=== PATIENT | female | born 1960 | race Caucasian/White ===

== ENCOUNTER 2017-12-06 21:52 | Inpatient (IN) ==
[2017-12-06] MEDS ORDERED: ONDANSETRON 4 MG/2 ML VIAL IV STA (23:33)
[2017-12-06] MEDS ORDERED: SODIUM CHLORIDE 0.9% 500 ML IV STA (23:33)
[2017-12-06] MEDS ORDERED: methylPREDNISolone SOD SUC 125 MG/2 ML VIAL IV STA (23:33)
[2017-12-06] MEDS ORDERED: ALBUTEROL 2.5 MG/3 ML NEB RESP TX SCH (23:45)
[2017-12-07] MEDS ORDERED: ONDANSETRON 4 MG/2 ML VIAL ONE (00:16)
[2017-12-07] MEDS ORDERED: methylPREDNISolone SOD SUC 125 MG/2 ML VIAL ONE (00:16)
[2017-12-07 00:23] LABS: INR 0.9; PT Patient Result 9.8 SECS
[2017-12-07] MEDS ORDERED: HYDROmorphone 2 MG/1 ML VIAL ONE (00:23)
[2017-12-07 00:34] LABS: Apearance,Urine CLEAR (Clear); Bilirubin,Urine Negative (Negative); Blood, Urine Small mg/dL (Negative); Glucose,Urine (UA) Negative (Negative); Ketones,Urine Negative (Negative); Nitrite,Urine Negative (Negative); Protein,Urine Negative; RBC,Urine 1 /HPF (0-4); Urine Color Yellow (Yellow); Urine Specific Gravity 1.009 (1.001-1.035); Urine Urobilinogen < 2.0 EU/DL (0.2-1.0); WBC,Urine <1 /HPF (0-6)
[2017-12-07 00:39] LABS: Basophils # 0.1 10*3/uL (0.0-0.2); Basophils % 0.4 % (0.0-0.8); Eosinophils # 0.1 10*3/uL (0.0-0.87); Eosinophils % 0.3 % (0.00-10.9); Hematocrit 40.9 VOL% (35.7-47.0); Hemoglobin 12.8 GM/DL (12.0-16.0); Immature Granulocytes % 2.2 %; Immature Granulocytes Absolute 0.37 #; Lymphocytes # 2.3 10*3/uL (1.4-4.0); Lymphocytes % 13.3 % (21.3-54.2); Mean Corpuscular HGB Conc 31.3 GM/DL (32-36); Mean Corpuscular Hemoglobin 28 PG (27-34); Mean Corpuscular Volume 89.7 FL (87-102); Mean Platelet Volume 9.3 FL (9.6-12.0); Neutrophils # 13.2 10*3/uL (1.4-7.4); Neutrophils % 77.8 % (38.7-73.9); Platelet Count 500 T/CUMM (130-400); Red Blood Count 4.56 MC/CUMM (3.8-5.5); Red Cell Distribution Width 14.6 % (9.3-17.3); White Blood Count 16.9 T/CUMM (4-12)
[2017-12-07] MEDS ORDERED: HYDROmorphone 2 MG/1 ML VIAL IV STA (00:41)
[2017-12-07 00:42] LABS: Barbiturates Screen,Urine Negative (Negative); Benzodiazepines Screen,Urine Positive (Negative); Cannabinoid Screen,Urine Negative (Negative); Opiate Screen,Urine Positive (Negative); Phencyclidine Screen,Urine Negative (Negative)
[2017-12-07 00:45] LABS: Alanine Aminotransferase 23 U/L (13-56); Albumin 3.3 G/DL (3.4-5.0); Alkaline Phosphatase 105 U/L (45-117); Aspartate Amino Transferase 10 U/L (0-37); Bilirubin,Total < 0.39 MG/DL (0.2-1.0); Blood Urea Nitrogen 9 MG/DL (7-18); Calcium 9.3 MG/DL (8.5-10.1); Glucose 157 MG/DL (74-106); Potassium 4.2 MMOL/L (3.5-5.1); Sodium 136 MMOL/L (136-145); Total Protein 6.5 G/DL (6.4-8.3); Troponin I Only < 0.015 NG/ML (0.00-0.045)
[2017-12-07] MEDS ORDERED: LEVOFLOXACIN INJ 0 ML IV ONE (01:14)
[2017-12-07] MEDS: LEVOFLOXACIN INJ 750 MG in PREMIX 1 EACH IV SCH (01:19)
[2017-12-07] MEDS ORDERED: VANCOMYCIN INJ 750 MG in SODIUM CHLORIDE 0.45% 250 ML IV SCH (02:00)
[2017-12-07] MEDS ORDERED: ALBUTEROL/IPRATROPIUM 3 ML NEB RESP TX STA (02:10)
[2017-12-07] MEDS ORDERED: ALBUTEROL 2.5 MG/3 ML NEB RESP TX PRN ×3 (02:28→17:01)
[2017-12-07] MEDS ORDERED: DEXTROSE 50% 25 GM/50 ML VIAL IV PRN (02:28)
[2017-12-07] MEDS ORDERED: GLUCAGON 1 MG VIAL IM PRN (02:28)
[2017-12-07] MEDS ORDERED: HYDROmorphone 2 MG/1 ML VIAL IV ONE (03:00)
[2017-12-07 04:52] LABS: Basophils % 0.2 % (0.0-0.8); Hematocrit 40.9 VOL% (35.7-47.0); Immature Granulocytes % 1.2 %; Immature Granulocytes Absolute 0.15 #; Lymphocytes # 1.2 10*3/uL (1.4-4.0); Lymphocytes % 9.6 % (21.3-54.2); Mean Corpuscular HGB Conc 31.8 GM/DL (32-36); Mean Corpuscular Hemoglobin 28 PG (27-34); Mean Corpuscular Volume 88.1 FL (87-102); Mean Platelet Volume 9.3 FL (9.6-12.0); Monocytes # 0.2 10*3/uL (0.11-0.8); Monocytes % 1.9 % (1.7-12.7); Neutrophils # 10.7 10*3/uL (1.4-7.4); Neutrophils % 87.1 % (38.7-73.9); Platelet Count 493 T/CUMM (130-400); Red Blood Count 4.64 MC/CUMM (3.8-5.5); Red Cell Distribution Width 14.5 % (9.3-17.3); White Blood Count 12.2 T/CUMM (4-12)
[2017-12-07 05:16] LABS: Lactic Acid 3.3 MMOL/L (0.4-2.0)
[2017-12-07] MEDS ORDERED: HYDROmorphone 2 MG/1 ML VIAL IM PRN (06:17)
[2017-12-07 06:39] LABS: Alanine Aminotransferase 20 U/L (13-56); Albumin 3.2 G/DL (3.4-5.0); Alkaline Phosphatase 105 U/L (45-117); Aspartate Amino Transferase 9 U/L (0-37); Bilirubin,Total < 0.39 MG/DL (0.2-1.0); Blood Urea Nitrogen 9 MG/DL (7-18); Glucose 207 MG/DL (74-106); Osmolality,Calculated 272.2 MOS/KG (273-304); Sodium 134 MMOL/L (136-145); Total Protein 6.7 G/DL (6.4-8.3)
[2017-12-07] MEDS ORDERED: HYDROmorphone 2 MG/1 ML VIAL IV PRN (07:00)
[2017-12-07] MEDS: HYDROmorphone 2 MG/1 ML VIAL IV PRN ×5 (07:41→18:40)
[2017-12-07] MEDS: PANTOPRAZOLE 40 MG TABLET PO SCH (09:49)
[2017-12-07] MEDS ORDERED: MIDAZOLAM 2 MG/2 ML VIAL ONE (11:15)
[2017-12-07] MEDS ORDERED: LIDOCAINE 4% TOP SOLN 50 ML BOTTLE RESP TX ONE (11:20)
[2017-12-07] MEDS ORDERED: LIDOCAINE 2% VISCOUS 100 ML BOTTLE SWISH/SPIT ONE (11:20)
[2017-12-07] MEDS ORDERED: MIDAZOLAM 2 MG/2 ML VIAL IV ONE (11:55)
[2017-12-07] MEDS ORDERED: LIDOCAINE 1% 5 ML VIAL MISC INJ ONE (11:58)
[2017-12-07] MEDS ORDERED: EPINEPHrine 1 MG/ML VIAL ET ONE (12:00)
[2017-12-07] MEDS ORDERED: ALUM/MAG/SIMETH/LIDO VISC 1:1 30 ML BOTTLE PO ONE ×3 (13:00→19:48)
[2017-12-07] MEDS ORDERED: RACEPINEPHRINE 0.5 ML NEB RESP TX PRN (13:34)
[2017-12-07] MEDS: RACEPINEPHRINE 0.5 ML NEB RESP TX SCH ×2 (16:14→19:15)
[2017-12-07] MEDS ORDERED: RACEPINEPHRINE 0.5 ML NEB RESP TX SCH (19:00)
[2017-12-07] MEDS: tiZANidine 4 MG TABLET PO SCH (20:53)
[2017-12-07] MEDS: buPROPion 100 MG TABLET PO SCH (20:53)
[2017-12-07] MEDS: oxyCODONE/ACETAMINOPHEN 5-325 MG TABLET PO SCH (20:54)
[2017-12-07] MEDS: ATORVASTATIN 10 MG TABLET PO SCH (20:54)
[2017-12-07] MEDS ORDERED: Adderall 20 Mg Tablet PO SCH (21:00)
[2017-12-07] MEDS: FLUTICASONE 50 MCG NASAL SPRAY 16 GM BOTTLE BOTH NARES SCH (22:08)
[2017-12-08] MEDS: LEVOFLOXACIN INJ 750 MG in PREMIX 1 EACH IV SCH (00:33)
[2017-12-08] MEDS: ALUMINUM/MAGNES/SIMETH MAX STR 30 ML UDCUP PO PRN ×2 (01:45→20:15)
[2017-12-08] MEDS: HYDROmorphone 2 MG/1 ML VIAL IV PRN ×4 (04:43→19:55)
[2017-12-08 07:02] LABS: Basophils % 0.3 % (0.0-0.8); Eosinophils # 0.1 10*3/uL (0.0-0.87); Eosinophils % 0.7 % (0.00-10.9); Hematocrit 39.5 VOL% (35.7-47.0); Hemoglobin 12.3 GM/DL (12.0-16.0); Immature Granulocytes % 0.9 %; Immature Granulocytes Absolute 0.09 #; Lymphocytes # 3.9 10*3/uL (1.4-4.0); Lymphocytes % 37.6 % (21.3-54.2); Mean Corpuscular HGB Conc 31.1 GM/DL (32-36); Mean Corpuscular Hemoglobin 27 PG (27-34); Mean Corpuscular Volume 87.4 FL (87-102); Mean Platelet Volume 9.1 FL (9.6-12.0); Monocytes # 0.8 10*3/uL (0.11-0.8); Neutrophils # 5.4 10*3/uL (1.4-7.4); Neutrophils % 52.5 % (38.7-73.9); Platelet Count 449 T/CUMM (130-400); Red Blood Count 4.52 MC/CUMM (3.8-5.5); Red Cell Distribution Width 14.5 % (9.3-17.3); White Blood Count 10.2 T/CUMM (4-12)
[2017-12-08 07:28] LABS: Calcium 9.8 MG/DL (8.5-10.1); Osmolality,Calculated 275.8 MOS/KG (273-304); Potassium 3.8 MMOL/L (3.5-5.1)
[2017-12-08] MEDS: RACEPINEPHRINE 0.5 ML NEB RESP TX SCH ×4 (07:32→21:05)
[2017-12-08] MEDS: buPROPion 100 MG TABLET PO SCH ×2 (09:03→22:36)
[2017-12-08] MEDS: oxyCODONE/ACETAMINOPHEN 5-325 MG TABLET PO SCH ×3 (09:03→22:34)
[2017-12-08] MEDS: tiZANidine 4 MG TABLET PO SCH ×3 (09:03→22:36)
[2017-12-08] MEDS: PANTOPRAZOLE 40 MG TABLET PO SCH (09:10)
[2017-12-08] MEDS: METOPROLOL SUCCINATE XL 50 MG TABLET PO SCH (09:10)
[2017-12-08] MEDS: FLUTICASONE 50 MCG NASAL SPRAY 16 GM BOTTLE BOTH NARES SCH ×2 (09:11→22:38)
[2017-12-08] MEDS: ATORVASTATIN 10 MG TABLET PO SCH (22:37)
[2017-12-09] MEDS: HYDROmorphone 2 MG/1 ML VIAL IV PRN ×5 (03:47→23:50)
[2017-12-09 06:02] LABS: Basophils # 0.1 10*3/uL (0.0-0.2); Basophils % 0.6 % (0.0-0.8); Eosinophils # 0.1 10*3/uL (0.0-0.87); Hematocrit 39.2 VOL% (35.7-47.0); Hemoglobin 12.3 GM/DL (12.0-16.0); Immature Granulocytes % 0.8 %; Immature Granulocytes Absolute 0.07 #; Lymphocytes # 3.1 10*3/uL (1.4-4.0); Mean Corpuscular HGB Conc 31.4 GM/DL (32-36); Mean Corpuscular Hemoglobin 28 PG (27-34); Mean Corpuscular Volume 87.7 FL (87-102); Mean Platelet Volume 9.2 FL (9.6-12.0); Monocytes # 0.8 10*3/uL (0.11-0.8); Monocytes % 9.2 % (1.7-12.7); Neutrophils # 4.5 10*3/uL (1.4-7.4); Neutrophils % 52.4 % (38.7-73.9); Platelet Count 422 T/CUMM (130-400); Red Blood Count 4.47 MC/CUMM (3.8-5.5); Red Cell Distribution Width 14.3 % (9.3-17.3); White Blood Count 8.6 T/CUMM (4-12)
[2017-12-09 06:29] LABS: Calcium 9.5 MG/DL (8.5-10.1); Osmolality,Calculated 280.5 MOS/KG (273-304)
[2017-12-09] MEDS: RACEPINEPHRINE 0.5 ML NEB RESP TX SCH ×4 (07:12→20:42)
[2017-12-09] MEDS: LEVOFLOXACIN INJ 750 MG in PREMIX 1 EACH IV SCH (08:10)
[2017-12-09] MEDS: oxyCODONE/ACETAMINOPHEN 5-325 MG TABLET PO SCH ×3 (10:33→21:00)
[2017-12-09] MEDS: METOPROLOL SUCCINATE XL 50 MG TABLET PO SCH (10:34)
[2017-12-09] MEDS: PANTOPRAZOLE 40 MG TABLET PO SCH (10:34)
[2017-12-09] MEDS: buPROPion 100 MG TABLET PO SCH ×2 (10:34→21:01)
[2017-12-09] MEDS: tiZANidine 4 MG TABLET PO SCH ×3 (10:34→21:02)
[2017-12-09] MEDS: FLUTICASONE 50 MCG NASAL SPRAY 16 GM BOTTLE BOTH NARES SCH ×2 (10:35→21:10)
[2017-12-09] MEDS ORDERED: HEPARIN LOCK FLUSH 500 UNIT/5 ML SYRINGE IV SCH (19:00)
[2017-12-09] MEDS: ALUMINUM/MAGNES/SIMETH MAX STR 30 ML UDCUP PO PRN (19:40)
[2017-12-09] MEDS: ATORVASTATIN 10 MG TABLET PO SCH (21:01)
[2017-12-09] MEDS: HEPARIN LOCK FLUSH 500 UNIT/5 ML SYRINGE IV SCH (21:10)
[2017-12-10] MEDS: HYDROmorphone 2 MG/1 ML VIAL IV PRN ×6 (02:28→20:23)
[2017-12-10] MEDS: RACEPINEPHRINE 0.5 ML NEB RESP TX SCH ×4 (07:39→20:27)
[2017-12-10] MEDS: ALBUTEROL/IPRATROPIUM 3 ML NEB RESP TX PRN (07:39)
[2017-12-10] MEDS: LEVOFLOXACIN INJ 750 MG in PREMIX 1 EACH IV SCH (09:11)
[2017-12-10] MEDS: FLUTICASONE 50 MCG NASAL SPRAY 16 GM BOTTLE BOTH NARES SCH ×2 (09:15→21:32)
[2017-12-10] MEDS: PANTOPRAZOLE 40 MG TABLET PO SCH (09:20)
[2017-12-10] MEDS: tiZANidine 4 MG TABLET PO SCH ×3 (09:20→21:26)
[2017-12-10] MEDS: oxyCODONE/ACETAMINOPHEN 5-325 MG TABLET PO SCH ×3 (09:20→21:25)
[2017-12-10] MEDS: buPROPion 100 MG TABLET PO SCH ×2 (09:20→21:26)
[2017-12-10] MEDS: HEPARIN LOCK FLUSH 500 UNIT/5 ML SYRINGE IV SCH ×2 (09:26→21:25)
[2017-12-10] MEDS: METOPROLOL SUCCINATE XL 50 MG TABLET PO SCH (12:42)
[2017-12-10] MEDS ORDERED: HEPARIN LOCK FLUSH 500 UNIT/5 ML SYRINGE IV ONE (14:17)
[2017-12-10] MEDS: DEXAMETHASONE INJ 10 MG in SODIUM CHLORIDE 0.9% 50 ML IV SCH (17:03)
[2017-12-10] MEDS: ATORVASTATIN 10 MG TABLET PO SCH (21:26)
[2017-12-11] MEDS: HYDROmorphone 2 MG/1 ML VIAL IV PRN ×6 (03:31→20:23)
[2017-12-11 05:17] LABS: Basophils % 0.2 % (0.0-0.8); Hematocrit 33.5 VOL% (35.7-47.0); Hemoglobin 10.9 GM/DL (12.0-16.0); Immature Granulocytes % 0.8 %; Immature Granulocytes Absolute 0.04 #; Lymphocytes # 1.2 10*3/uL (1.4-4.0); Lymphocytes % 22.2 % (21.3-54.2); Mean Corpuscular HGB Conc 32.5 GM/DL (32-36); Mean Corpuscular Hemoglobin 28 PG (27-34); Mean Corpuscular Volume 86.6 FL (87-102); Mean Platelet Volume 9.4 FL (9.6-12.0); Monocytes # 0.4 10*3/uL (0.11-0.8); Monocytes % 7.3 % (1.7-12.7); Neutrophils # 3.7 10*3/uL (1.4-7.4); Neutrophils % 69.5 % (38.7-73.9); Platelet Count 382 T/CUMM (130-400); Red Blood Count 3.87 MC/CUMM (3.8-5.5); Red Cell Distribution Width 13.8 % (9.3-17.3); White Blood Count 5.3 T/CUMM (4-12)
[2017-12-11 05:54] LABS: Calcium 9.1 MG/DL (8.5-10.1); Osmolality,Calculated 282.7 MOS/KG (273-304); Potassium 3.9 MMOL/L (3.5-5.1)
[2017-12-11] MEDS: RACEPINEPHRINE 0.5 ML NEB RESP TX SCH ×4 (07:27→21:01)
[2017-12-11] MEDS: DEXAMETHASONE INJ 10 MG in SODIUM CHLORIDE 0.9% 50 ML IV SCH (09:08)
[2017-12-11] MEDS: FLUTICASONE 50 MCG NASAL SPRAY 16 GM BOTTLE BOTH NARES SCH ×2 (09:08→21:57)
[2017-12-11] MEDS: tiZANidine 4 MG TABLET PO SCH ×3 (09:09→21:46)
[2017-12-11] MEDS: buPROPion 100 MG TABLET PO SCH ×2 (09:09→21:57)
[2017-12-11] MEDS: oxyCODONE/ACETAMINOPHEN 5-325 MG TABLET PO SCH ×3 (09:09→21:46)
[2017-12-11] MEDS: METOPROLOL SUCCINATE XL 50 MG TABLET PO SCH (09:10)
[2017-12-11] MEDS: HEPARIN LOCK FLUSH 500 UNIT/5 ML SYRINGE IV SCH ×2 (09:10→21:49)
[2017-12-11] MEDS: PANTOPRAZOLE 40 MG TABLET PO SCH (09:10)
[2017-12-11] MEDS: LEVOFLOXACIN INJ 750 MG in PREMIX 1 EACH IV SCH (09:50)
[2017-12-11] MEDS: INSULIN REGULAR 100 UNIT/ML SUBCUT SCH ×2 (17:20→21:46)
[2017-12-11] MEDS: ATORVASTATIN 10 MG TABLET PO SCH (21:46)
[2017-12-12] MEDS: HYDROmorphone 2 MG/1 ML VIAL IV PRN ×8 (00:09→20:13)
[2017-12-12] MEDS: RACEPINEPHRINE 0.5 ML NEB RESP TX SCH ×4 (07:01→19:53)
[2017-12-12] MEDS: oxyCODONE/ACETAMINOPHEN 5-325 MG TABLET PO SCH (08:34)
[2017-12-12] MEDS: FLUTICASONE 50 MCG NASAL SPRAY 16 GM BOTTLE BOTH NARES SCH ×2 (08:34→21:44)
[2017-12-12] MEDS: INSULIN REGULAR 100 UNIT/ML SUBCUT SCH ×4 (08:35→21:38)
[2017-12-12] MEDS: buPROPion 100 MG TABLET PO SCH ×2 (08:35→21:39)
[2017-12-12] MEDS: PANTOPRAZOLE 40 MG TABLET PO SCH (08:35)
[2017-12-12] MEDS: tiZANidine 4 MG TABLET PO SCH ×3 (08:35→21:39)
[2017-12-12] MEDS: METOPROLOL SUCCINATE XL 50 MG TABLET PO SCH (08:36)
[2017-12-12] MEDS: DEXAMETHASONE INJ 10 MG in SODIUM CHLORIDE 0.9% 50 ML IV SCH (08:38)
[2017-12-12] MEDS: LEVOFLOXACIN INJ 750 MG in PREMIX 1 EACH IV SCH (09:19)
[2017-12-12] MEDS: HEPARIN LOCK FLUSH 500 UNIT/5 ML SYRINGE IV SCH ×2 (09:20→21:39)
[2017-12-12] MEDS: ATORVASTATIN 10 MG TABLET PO SCH (21:39)
[2017-12-12] MEDS: oxyCODONE/ACETAMINOPHEN 5-325 MG TABLET PO PRN (21:43)
[2017-12-13] MEDS: HYDROmorphone 2 MG/1 ML VIAL IV PRN ×8 (00:06→20:45)
[2017-12-13 06:34] LABS: Basophils % 0.3 % (0.0-0.8); Eosinophils # 0.1 10*3/uL (0.0-0.87); Eosinophils % 0.9 % (0.00-10.9); Hematocrit 35.8 VOL% (35.7-47.0); Hemoglobin 11.1 GM/DL (12.0-16.0); Immature Granulocytes % 0.6 %; Immature Granulocytes Absolute 0.05 #; Lymphocytes # 2.3 10*3/uL (1.4-4.0); Lymphocytes % 25.7 % (21.3-54.2); Mean Corpuscular Hemoglobin 28 PG (27-34); Mean Corpuscular Volume 88.8 FL (87-102); Monocytes # 0.9 10*3/uL (0.11-0.8); Monocytes % 10.3 % (1.7-12.7); Neutrophils # 5.5 10*3/uL (1.4-7.4); Neutrophils % 62.2 % (38.7-73.9); Platelet Count 354 T/CUMM (130-400); Red Blood Count 4.03 MC/CUMM (3.8-5.5); Red Cell Distribution Width 13.9 % (9.3-17.3); White Blood Count 8.8 T/CUMM (4-12)
[2017-12-13] MEDS: RACEPINEPHRINE 0.5 ML NEB RESP TX SCH ×5 (07:00→20:03)
[2017-12-13] MEDS ORDERED: HYDROmorphone 2 MG/1 ML VIAL IV ONE (07:30)
[2017-12-13] MEDS ORDERED: LIDOCAINE 2% 20 ML VIAL RESP TX ONE (07:30)
[2017-12-13] MEDS ORDERED: LIDOCAINE 2% VISCOUS 100 ML BOTTLE SWISH/SPIT ONE (07:30)
[2017-12-13] MEDS ORDERED: diphenhydrAMINE 50 MG/1 ML VIAL IM ONE (07:30)
[2017-12-13] MEDS ORDERED: LIDOCAINE 1% 20 ML VIAL MISC INJ ONE (07:30)
[2017-12-13] MEDS: PANTOPRAZOLE 40 MG TABLET PO SCH (08:02)
[2017-12-13] MEDS: buPROPion 100 MG TABLET PO SCH ×2 (08:03→20:54)
[2017-12-13 08:13] LABS: PT Patient Result 10.1 SECS; Partial Thromboplastin Time 25.9 SECS (0-40)
[2017-12-13] MEDS: METOPROLOL SUCCINATE XL 50 MG TABLET PO SCH (08:13)
[2017-12-13] MEDS: HEPARIN LOCK FLUSH 500 UNIT/5 ML SYRINGE IV SCH ×2 (08:13→20:49)
[2017-12-13] MEDS: FLUTICASONE 50 MCG NASAL SPRAY 16 GM BOTTLE BOTH NARES SCH ×2 (08:13→20:57)
[2017-12-13] MEDS: INSULIN REGULAR 100 UNIT/ML SUBCUT SCH ×4 (08:13→23:28)
[2017-12-13] MEDS: tiZANidine 4 MG TABLET PO SCH ×3 (08:13→20:53)
[2017-12-13] MEDS ORDERED: MIDAZOLAM 2 MG/2 ML VIAL ONE (08:34)
[2017-12-13 08:43] LABS: Alanine Aminotransferase 15 U/L (13-56); Albumin 3.1 G/DL (3.4-5.0); Alkaline Phosphatase 88 U/L (45-117); Aspartate Amino Transferase 5 U/L (0-37); Bilirubin,Total < 0.39 MG/DL (0.2-1.0); Blood Urea Nitrogen 10 MG/DL (7-18); Calcium 9.4 MG/DL (8.5-10.1); Glucose 138 MG/DL (74-106); Osmolality,Calculated 275.7 MOS/KG (273-304); Potassium 3.8 MMOL/L (3.5-5.1); Sodium 138 MMOL/L (136-145); Total Protein 6.3 G/DL (6.4-8.3)
[2017-12-13] MEDS ORDERED: MIDAZOLAM 2 MG/2 ML VIAL IV ONE (09:30)
[2017-12-13] MEDS ORDERED: EPINEPHrine 1 MG/ML VIAL ET ONE (09:37)
[2017-12-13] MEDS: DEXAMETHASONE INJ 10 MG in SODIUM CHLORIDE 0.9% 50 ML IV SCH (10:27)
[2017-12-13] MEDS ORDERED: EPINEPHrine 1 MG/ML VIAL ONE (10:30)
[2017-12-13] MEDS: oxyCODONE/ACETAMINOPHEN 5-325 MG TABLET PO PRN ×2 (12:00→23:19)
[2017-12-13] MEDS: LEVOFLOXACIN INJ 750 MG in PREMIX 1 EACH IV SCH (16:56)
[2017-12-13] MEDS: ATORVASTATIN 10 MG TABLET PO SCH (20:53)
[2017-12-14] MEDS: HYDROmorphone 2 MG/1 ML VIAL IV PRN ×3 (00:34→05:35)
[2017-12-14 06:34] LABS: Basophils % 0.1 % (0.0-0.8); Eosinophils % 0.6 % (0.00-10.9); Hematocrit 37.7 VOL% (35.7-47.0); Hemoglobin 11.8 GM/DL (12.0-16.0); Immature Granulocytes % 0.3 %; Immature Granulocytes Absolute 0.02 #; Lymphocytes # 1.9 10*3/uL (1.4-4.0); Lymphocytes % 28.6 % (21.3-54.2); Mean Corpuscular HGB Conc 31.3 GM/DL (32-36); Mean Corpuscular Hemoglobin 28 PG (27-34); Mean Corpuscular Volume 87.9 FL (87-102); Mean Platelet Volume 9.4 FL (9.6-12.0); Monocytes # 0.8 10*3/uL (0.11-0.8); Monocytes % 11.1 % (1.7-12.7); Neutrophils % 59.3 % (38.7-73.9); Platelet Count 418 T/CUMM (130-400); Red Blood Count 4.29 MC/CUMM (3.8-5.5); Red Cell Distribution Width 13.9 % (9.3-17.3); White Blood Count 6.8 T/CUMM (4-12)
[2017-12-14] MEDS: oxyCODONE/ACETAMINOPHEN 5-325 MG TABLET PO PRN (06:55)
[2017-12-14 07:07] LABS: Albumin 3.2 G/DL (3.4-5.0); Bilirubin,Total 0.9 MG/DL (0.2-1.0); Calcium 9.6 MG/DL (8.5-10.1); Osmolality,Calculated 271.8 MOS/KG (273-304); Potassium 4.1 MMOL/L (3.5-5.1); Total Protein 6.6 G/DL (6.4-8.3)
[2017-12-14] MEDS: RACEPINEPHRINE 0.5 ML NEB RESP TX SCH ×4 (07:08→20:40)
[2017-12-14] MEDS ORDERED: NALOXONE 0.4 MG/ML VIAL IV PRN (07:55)
[2017-12-14] MEDS: METOPROLOL SUCCINATE XL 50 MG TABLET PO SCH ×2 (09:33→10:00)
[2017-12-14] MEDS: PANTOPRAZOLE 40 MG TABLET PO SCH (09:33)
[2017-12-14] MEDS: INSULIN REGULAR 100 UNIT/ML SUBCUT SCH ×4 (09:34→22:28)
[2017-12-14] MEDS: HYDROmorphone PCA 30 MG/30 ML SYRINGE IV SCH (09:34)
[2017-12-14] MEDS: HEPARIN LOCK FLUSH 500 UNIT/5 ML SYRINGE IV SCH ×2 (09:35→22:13)
[2017-12-14] MEDS: FLUTICASONE 50 MCG NASAL SPRAY 16 GM BOTTLE BOTH NARES SCH ×2 (09:36→23:01)
[2017-12-14] MEDS: MORPHINE ER 15 MG TABLET PO SCH ×3 (09:42→22:09)
[2017-12-14] MEDS: CARISOPRODOL 350 MG TABLET PO SCH ×3 (09:43→22:10)
[2017-12-14] MEDS: DEXAMETHASONE INJ 10 MG in SODIUM CHLORIDE 0.9% 50 ML IV SCH (09:43)
[2017-12-14] MEDS: buPROPion 100 MG TABLET PO SCH ×2 (10:00→22:11)
[2017-12-14] MEDS: ATORVASTATIN 10 MG TABLET PO SCH (22:11)
[2017-12-15] MEDS: ALUMINUM/MAGNES/SIMETH MAX STR 30 ML UDCUP PO PRN (01:06)
[2017-12-15] MEDS: HEPARIN LOCK FLUSH 500 UNIT/5 ML SYRINGE IV PRN (04:44)
[2017-12-15] MEDS: CARISOPRODOL 350 MG TABLET PO SCH ×3 (05:58→22:03)
[2017-12-15] MEDS: MORPHINE ER 15 MG TABLET PO SCH ×3 (05:58→22:03)
[2017-12-15 06:21] LABS: Basophils % 0.1 % (0.0-0.8); Eosinophils # 0.1 10*3/uL (0.0-0.87); Eosinophils % 0.7 % (0.00-10.9); Hematocrit 33.9 VOL% (35.7-47.0); Hemoglobin 11.3 GM/DL (12.0-16.0); Immature Granulocytes % 0.4 %; Immature Granulocytes Absolute 0.03 #; Lymphocytes % 36.3 % (21.3-54.2); Mean Corpuscular HGB Conc 33.3 GM/DL (32-36); Mean Corpuscular Hemoglobin 28 PG (27-34); Mean Corpuscular Volume 85.2 FL (87-102); Mean Platelet Volume 9.8 FL (9.6-12.0); Monocytes # 0.7 10*3/uL (0.11-0.8); Monocytes % 8.8 % (1.7-12.7); Neutrophils # 4.5 10*3/uL (1.4-7.4); Neutrophils % 53.7 % (38.7-73.9); Platelet Count 384 T/CUMM (130-400); Red Blood Count 3.98 MC/CUMM (3.8-5.5); Red Cell Distribution Width 13.5 % (9.3-17.3); White Blood Count 8.3 T/CUMM (4-12)
[2017-12-15 06:31] LABS: Alanine Aminotransferase 14 U/L (13-56); Albumin 3.1 G/DL (3.4-5.0); Alkaline Phosphatase 81 U/L (45-117); Aspartate Amino Transferase 7 U/L (0-37); Bilirubin,Total < 0.39 MG/DL (0.2-1.0); Blood Urea Nitrogen 13 MG/DL (7-18); Calcium 9.2 MG/DL (8.5-10.1); Glucose 107 MG/DL (74-106); Potassium 3.7 MMOL/L (3.5-5.1); Sodium 136 MMOL/L (136-145); Total Protein 6.1 G/DL (6.4-8.3)
[2017-12-15] MEDS: RACEPINEPHRINE 0.5 ML NEB RESP TX SCH (07:10)
[2017-12-15] MEDS ORDERED: DEXAMETHASONE INJ 10 MG in SODIUM CHLORIDE 0.9% 50 ML IV ONE (08:00)
[2017-12-15] MEDS ORDERED: ONDANSETRON IV ONE (08:05)
[2017-12-15] MEDS ORDERED: SODIUM CHLORIDE 0.9% IV ONE (08:05)
[2017-12-15] MEDS ORDERED: CARBOplatin 300 MG in SODIUM CHLORIDE 0.9% 250 ML IV ONE (08:07)
[2017-12-15] MEDS: INSULIN REGULAR 100 UNIT/ML SUBCUT SCH ×4 (08:58→20:18)
[2017-12-15] MEDS: PANTOPRAZOLE 40 MG TABLET PO SCH (09:19)
[2017-12-15] MEDS: METOPROLOL SUCCINATE XL 50 MG TABLET PO SCH (09:19)
[2017-12-15] MEDS: HEPARIN LOCK FLUSH 500 UNIT/5 ML SYRINGE IV SCH ×2 (09:19→20:17)
[2017-12-15] MEDS: buPROPion 100 MG TABLET PO SCH ×2 (09:19→20:17)
[2017-12-15] MEDS: FLUTICASONE 50 MCG NASAL SPRAY 16 GM BOTTLE BOTH NARES SCH ×2 (09:20→20:19)
[2017-12-15] MEDS: ONDANSETRON 4 MG/2 ML VIAL IV PRN (13:15)
[2017-12-15] MEDS: DEXAMETHASONE INJ 10 MG in SODIUM CHLORIDE 0.9% 50 ML IV SCH (15:07)
[2017-12-15] MEDS: HYDROmorphone PCA 30 MG/30 ML SYRINGE IV SCH (20:09)
[2017-12-15] MEDS: ATORVASTATIN 10 MG TABLET PO SCH (20:17)
[2017-12-16] MEDS: ONDANSETRON 4 MG/2 ML VIAL IV PRN ×2 (01:34→11:46)
[2017-12-16] MEDS: CARISOPRODOL 350 MG TABLET PO SCH ×3 (06:14→21:36)
[2017-12-16] MEDS: MORPHINE ER 15 MG TABLET PO SCH ×3 (06:14→21:36)
[2017-12-16 07:47] LABS: Basophils % 0.2 % (0.0-0.8); Eosinophils # 0.1 10*3/uL (0.0-0.87); Eosinophils % 0.6 % (0.00-10.9); Hematocrit 36.4 VOL% (35.7-47.0); Hemoglobin 11.5 GM/DL (12.0-16.0); Immature Granulocytes % 0.6 %; Immature Granulocytes Absolute 0.05 #; Lymphocytes # 3.1 10*3/uL (1.4-4.0); Lymphocytes % 38.6 % (21.3-54.2); Mean Corpuscular HGB Conc 31.6 GM/DL (32-36); Mean Corpuscular Hemoglobin 28 PG (27-34); Mean Corpuscular Volume 87.7 FL (87-102); Mean Platelet Volume 9.4 FL (9.6-12.0); Monocytes # 0.7 10*3/uL (0.11-0.8); Monocytes % 8.1 % (1.7-12.7); Neutrophils # 4.2 10*3/uL (1.4-7.4); Neutrophils % 51.9 % (38.7-73.9); Platelet Count 404 T/CUMM (130-400); Red Blood Count 4.15 MC/CUMM (3.8-5.5); Red Cell Distribution Width 13.8 % (9.3-17.3); White Blood Count 8.1 T/CUMM (4-12)
[2017-12-16 08:14] LABS: Alanine Aminotransferase 14 U/L (13-56); Alkaline Phosphatase 84 U/L (45-117); Aspartate Amino Transferase 4 U/L (0-37); Bilirubin,Total < 0.39 MG/DL (0.2-1.0); Blood Urea Nitrogen 13 MG/DL (7-18); Calcium 9.4 MG/DL (8.5-10.1); Glucose 115 MG/DL (74-106); Osmolality,Calculated 273.8 MOS/KG (273-304); Potassium 4.7 MMOL/L (3.5-5.1); Sodium 137 MMOL/L (136-145); Total Protein 6.1 G/DL (6.4-8.3)
[2017-12-16] MEDS: INSULIN REGULAR 100 UNIT/ML SUBCUT SCH ×4 (08:55→21:37)
[2017-12-16] MEDS: PANTOPRAZOLE 40 MG TABLET PO SCH (09:54)
[2017-12-16] MEDS: buPROPion 100 MG TABLET PO SCH ×2 (09:54→21:36)
[2017-12-16] MEDS: HEPARIN LOCK FLUSH 500 UNIT/5 ML SYRINGE IV SCH ×2 (09:55→21:37)
[2017-12-16] MEDS: FLUTICASONE 50 MCG NASAL SPRAY 16 GM BOTTLE BOTH NARES SCH ×2 (10:01→21:38)
[2017-12-16] MEDS: METOPROLOL SUCCINATE XL 50 MG TABLET PO SCH (10:02)
[2017-12-16] MEDS: DEXAMETHASONE INJ 10 MG in SODIUM CHLORIDE 0.9% 50 ML IV SCH (12:14)
[2017-12-16] MEDS: ATORVASTATIN 10 MG TABLET PO SCH (21:36)
[2017-12-16] MEDS: HYDROmorphone PCA 30 MG/30 ML SYRINGE IV SCH (23:26)
[2017-12-17 05:29] LABS: Basophils % 0.2 % (0.0-0.8); Eosinophils # 0.1 10*3/uL (0.0-0.87); Eosinophils % 0.8 % (0.00-10.9); Hemoglobin 11.9 GM/DL (12.0-16.0); Immature Granulocytes % 1.3 %; Immature Granulocytes Absolute 0.08 #; Lymphocytes # 2.1 10*3/uL (1.4-4.0); Lymphocytes % 33.8 % (21.3-54.2); Mean Corpuscular HGB Conc 31.3 GM/DL (32-36); Mean Corpuscular Hemoglobin 28 PG (27-34); Mean Platelet Volume 9.6 FL (9.6-12.0); Monocytes # 0.7 10*3/uL (0.11-0.8); Monocytes % 11.1 % (1.7-12.7); Neutrophils # 3.3 10*3/uL (1.4-7.4); Neutrophils % 52.8 % (38.7-73.9); Platelet Count 388 T/CUMM (130-400); Red Blood Count 4.32 MC/CUMM (3.8-5.5); Red Cell Distribution Width 13.8 % (9.3-17.3); White Blood Count 6.3 T/CUMM (4-12)
[2017-12-17] MEDS: CARISOPRODOL 350 MG TABLET PO SCH ×3 (06:24→22:02)
[2017-12-17] MEDS: MORPHINE ER 15 MG TABLET PO SCH ×3 (06:24→22:02)
[2017-12-17 06:26] LABS: Alanine Aminotransferase 13 U/L (13-56); Alkaline Phosphatase 87 U/L (45-117); Aspartate Amino Transferase < 3 U/L (0-37); Blood Urea Nitrogen 11 MG/DL (7-18); Calcium 9.5 MG/DL (8.5-10.1); Glucose 87 MG/DL (74-106); Potassium 4.1 MMOL/L (3.5-5.1); Sodium 136 MMOL/L (136-145); Total Protein 6.3 G/DL (6.4-8.3)
[2017-12-17] MEDS: buPROPion 100 MG TABLET PO SCH ×2 (09:01→22:02)
[2017-12-17] MEDS: PANTOPRAZOLE 40 MG TABLET PO SCH (09:01)
[2017-12-17] MEDS: DIAZEPAM 2 MG TABLET PO SCH ×2 (09:01→22:03)
[2017-12-17] MEDS: HEPARIN LOCK FLUSH 500 UNIT/5 ML SYRINGE IV SCH ×2 (09:02→22:03)
[2017-12-17] MEDS: INSULIN REGULAR 100 UNIT/ML SUBCUT SCH ×4 (09:02→20:47)
[2017-12-17] MEDS: HYDROmorphone PCA 30 MG/30 ML SYRINGE IV SCH (09:02)
[2017-12-17] MEDS: METOPROLOL SUCCINATE XL 50 MG TABLET PO SCH (09:03)
[2017-12-17] MEDS: FLUTICASONE 50 MCG NASAL SPRAY 16 GM BOTTLE BOTH NARES SCH ×2 (09:03→22:04)
[2017-12-17] MEDS: DEXAMETHASONE INJ 10 MG in SODIUM CHLORIDE 0.9% 50 ML IV SCH (09:06)
[2017-12-17] MEDS: ALBUTEROL/IPRATROPIUM 3 ML NEB RESP TX PRN ×2 (12:07→19:15)
[2017-12-17] MEDS: ATORVASTATIN 10 MG TABLET PO SCH (22:02)
[2017-12-18 03:14] LABS: Basophils % 0.2 % (0.0-0.8); Eosinophils % 0.5 % (0.00-10.9); Hematocrit 35.3 VOL% (35.7-47.0); Hemoglobin 11.4 GM/DL (12.0-16.0); Immature Granulocytes % 0.8 %; Immature Granulocytes Absolute 0.05 #; Lymphocytes # 1.9 10*3/uL (1.4-4.0); Lymphocytes % 31.3 % (21.3-54.2); Mean Corpuscular HGB Conc 32.3 GM/DL (32-36); Mean Corpuscular Hemoglobin 28 PG (27-34); Mean Corpuscular Volume 86.5 FL (87-102); Mean Platelet Volume 9.7 FL (9.6-12.0); Monocytes # 0.8 10*3/uL (0.11-0.8); Neutrophils # 3.2 10*3/uL (1.4-7.4); Neutrophils % 54.2 % (38.7-73.9); Platelet Count 354 T/CUMM (130-400); Red Blood Count 4.08 MC/CUMM (3.8-5.5); Red Cell Distribution Width 13.5 % (9.3-17.3)
[2017-12-18 03:41] LABS: Albumin 2.9 G/DL (3.4-5.0); Bilirubin,Total 0.5 MG/DL (0.2-1.0); Calcium 8.9 MG/DL (8.5-10.1); Osmolality,Calculated 264.4 MOS/KG (273-304); Total Protein 6.1 G/DL (6.4-8.3)
[2017-12-18 03:42] LABS: Potassium 3.9 MMOL/L (3.5-5.1)
[2017-12-18] MEDS ORDERED: HYDROmorphone 2 MG/1 ML VIAL IV PRN (05:03)
[2017-12-18] MEDS: CARISOPRODOL 350 MG TABLET PO SCH ×3 (06:31→22:15)
[2017-12-18] MEDS: MORPHINE ER 15 MG TABLET PO SCH ×4 (06:31→22:15)
[2017-12-18] MEDS: ALBUTEROL/IPRATROPIUM 3 ML NEB RESP TX PRN ×3 (08:08→19:30)
[2017-12-18] MEDS: HYDROmorphone PCA 30 MG/30 ML SYRINGE IV SCH (08:46)
[2017-12-18] MEDS: buPROPion 100 MG TABLET PO SCH ×2 (08:51→20:36)
[2017-12-18] MEDS: INSULIN REGULAR 100 UNIT/ML SUBCUT SCH ×4 (08:51→20:43)
[2017-12-18] MEDS: PANTOPRAZOLE 40 MG TABLET PO SCH (08:51)
[2017-12-18] MEDS: DIAZEPAM 2 MG TABLET PO SCH ×2 (08:51→20:37)
[2017-12-18] MEDS: METOPROLOL SUCCINATE XL 50 MG TABLET PO SCH (08:51)
[2017-12-18] MEDS: HYDROmorphone 2 MG/1 ML VIAL IV SCH ×3 (08:52→20:38)
[2017-12-18] MEDS: DEXAMETHASONE INJ 10 MG in SODIUM CHLORIDE 0.9% 50 ML IV SCH (08:55)
[2017-12-18] MEDS: HEPARIN LOCK FLUSH 500 UNIT/5 ML SYRINGE IV SCH ×2 (08:56→20:43)
[2017-12-18] MEDS: FLUTICASONE 50 MCG NASAL SPRAY 16 GM BOTTLE BOTH NARES SCH ×2 (08:58→20:47)
[2017-12-18] MEDS: ONDANSETRON 4 MG/2 ML VIAL IV PRN ×2 (12:25→16:36)
[2017-12-18] MEDS: ATORVASTATIN 10 MG TABLET PO SCH (20:37)
[2017-12-19] MEDS: HYDROmorphone 2 MG/1 ML VIAL IV SCH ×4 (02:45→19:40)
[2017-12-19 06:20] LABS: Basophils % 0.2 % (0.0-0.8); Eosinophils % 0.4 % (0.00-10.9); Hematocrit 33.8 VOL% (35.7-47.0); Immature Granulocytes % 0.9 %; Immature Granulocytes Absolute 0.05 #; Lymphocytes # 1.4 10*3/uL (1.4-4.0); Lymphocytes % 24.4 % (21.3-54.2); Mean Corpuscular HGB Conc 32.5 GM/DL (32-36); Mean Corpuscular Hemoglobin 28 PG (27-34); Mean Corpuscular Volume 84.7 FL (87-102); Mean Platelet Volume 9.8 FL (9.6-12.0); Monocytes # 0.5 10*3/uL (0.11-0.8); Monocytes % 8.3 % (1.7-12.7); Neutrophils # 3.7 10*3/uL (1.4-7.4); Neutrophils % 65.8 % (38.7-73.9); Platelet Count 366 T/CUMM (130-400); Red Blood Count 3.99 MC/CUMM (3.8-5.5); Red Cell Distribution Width 13.6 % (9.3-17.3); White Blood Count 5.5 T/CUMM (4-12)
[2017-12-19 06:45] LABS: Albumin 2.7 G/DL (3.4-5.0); Bilirubin,Total 0.4 MG/DL (0.2-1.0); Calcium 9.1 MG/DL (8.5-10.1); Osmolality,Calculated 264.4 MOS/KG (273-304); Total Protein 5.8 G/DL (6.4-8.3)
[2017-12-19] MEDS: CARISOPRODOL 350 MG TABLET PO SCH ×3 (06:51→21:53)
[2017-12-19] MEDS: MORPHINE ER 15 MG TABLET PO SCH ×3 (06:52→21:53)
[2017-12-19] MEDS: ALBUTEROL/IPRATROPIUM 3 ML NEB RESP TX PRN ×3 (08:08→20:53)
[2017-12-19] MEDS: PANTOPRAZOLE 40 MG TABLET PO SCH (09:02)
[2017-12-19] MEDS: DIAZEPAM 2 MG TABLET PO SCH ×2 (09:02→21:53)
[2017-12-19] MEDS: buPROPion 100 MG TABLET PO SCH ×2 (09:02→21:54)
[2017-12-19] MEDS: DEXAMETHASONE INJ 10 MG in SODIUM CHLORIDE 0.9% 50 ML IV SCH (09:04)
[2017-12-19] MEDS: INSULIN REGULAR 100 UNIT/ML SUBCUT SCH ×4 (09:09→21:56)
[2017-12-19] MEDS: METOPROLOL SUCCINATE XL 50 MG TABLET PO SCH (09:10)
[2017-12-19] MEDS: HEPARIN LOCK FLUSH 500 UNIT/5 ML SYRINGE IV SCH ×2 (09:10→21:55)
[2017-12-19] MEDS: FLUTICASONE 50 MCG NASAL SPRAY 16 GM BOTTLE BOTH NARES SCH ×2 (09:10→21:55)
[2017-12-19] MEDS: ONDANSETRON 4 MG/2 ML VIAL IV PRN (14:13)
[2017-12-19] MEDS: guaiFENesin 200 MG/10 ML UDCUP PO PRN ×2 (14:15→23:46)
[2017-12-19] MEDS: ATORVASTATIN 10 MG TABLET PO SCH (21:54)
[2017-12-20] MEDS: HYDROmorphone 2 MG/1 ML VIAL IV SCH ×4 (02:43→20:20)
[2017-12-20 06:07] LABS: Basophils % 0.2 % (0.0-0.8); Eosinophils % 0.2 % (0.00-10.9); Hematocrit 32.1 VOL% (35.7-47.0); Hemoglobin 10.5 GM/DL (12.0-16.0); Immature Granulocytes % 1.1 %; Immature Granulocytes Absolute 0.05 #; Lymphocytes # 1.3 10*3/uL (1.4-4.0); Mean Corpuscular HGB Conc 32.7 GM/DL (32-36); Mean Corpuscular Hemoglobin 28 PG (27-34); Mean Corpuscular Volume 86.3 FL (87-102); Mean Platelet Volume 9.6 FL (9.6-12.0); Monocytes # 0.4 10*3/uL (0.11-0.8); Monocytes % 8.9 % (1.7-12.7); Neutrophils # 2.8 10*3/uL (1.4-7.4); Neutrophils % 61.6 % (38.7-73.9); Platelet Count 345 T/CUMM (130-400); Red Blood Count 3.72 MC/CUMM (3.8-5.5); Red Cell Distribution Width 13.3 % (9.3-17.3); White Blood Count 4.5 T/CUMM (4-12)
[2017-12-20 06:31] LABS: Calcium 8.7 MG/DL (8.5-10.1); Osmolality,Calculated 264.4 MOS/KG (273-304); Potassium 3.9 MMOL/L (3.5-5.1)
[2017-12-20] MEDS: CARISOPRODOL 350 MG TABLET PO SCH ×3 (06:49→22:47)
[2017-12-20] MEDS: MORPHINE ER 15 MG TABLET PO SCH ×3 (06:49→22:47)
[2017-12-20] MEDS: INSULIN REGULAR 100 UNIT/ML SUBCUT SCH ×4 (08:04→21:27)
[2017-12-20] MEDS: ALBUTEROL/IPRATROPIUM 3 ML NEB RESP TX PRN ×3 (08:09→19:27)
[2017-12-20] MEDS: DEXAMETHASONE INJ 10 MG in SODIUM CHLORIDE 0.9% 50 ML IV SCH (08:54)
[2017-12-20] MEDS: HEPARIN LOCK FLUSH 500 UNIT/5 ML SYRINGE IV SCH ×2 (08:56→21:25)
[2017-12-20] MEDS: PANTOPRAZOLE 40 MG TABLET PO SCH (08:56)
[2017-12-20] MEDS: buPROPion 100 MG TABLET PO SCH ×2 (08:56→21:25)
[2017-12-20] MEDS: DIAZEPAM 2 MG TABLET PO SCH ×2 (08:56→21:25)
[2017-12-20] MEDS: METOPROLOL SUCCINATE XL 50 MG TABLET PO SCH (08:56)
[2017-12-20] MEDS: FLUTICASONE 50 MCG NASAL SPRAY 16 GM BOTTLE BOTH NARES SCH ×2 (08:57→21:26)
[2017-12-20] MEDS: guaiFENesin 200 MG/10 ML UDCUP PO PRN (14:38)
[2017-12-20] MEDS: ATORVASTATIN 10 MG TABLET PO SCH (21:25)
[2017-12-21] MEDS: HYDROmorphone 2 MG/1 ML VIAL IV SCH ×4 (02:45→19:43)
[2017-12-21] MEDS: CARISOPRODOL 350 MG TABLET PO SCH ×3 (05:56→22:14)
[2017-12-21] MEDS: MORPHINE ER 15 MG TABLET PO SCH ×3 (05:56→22:14)
[2017-12-21 06:20] LABS: Basophils % 0.4 % (0.0-0.8); Eosinophils % 0.2 % (0.00-10.9); Hematocrit 35.6 VOL% (35.7-47.0); Hemoglobin 11.3 GM/DL (12.0-16.0); Immature Granulocytes % 1.1 %; Immature Granulocytes Absolute 0.06 #; Lymphocytes # 1.2 10*3/uL (1.4-4.0); Lymphocytes % 22.3 % (21.3-54.2); Mean Corpuscular HGB Conc 31.7 GM/DL (32-36); Mean Corpuscular Hemoglobin 28 PG (27-34); Mean Corpuscular Volume 87.5 FL (87-102); Mean Platelet Volume 9.5 FL (9.6-12.0); Monocytes # 0.4 10*3/uL (0.11-0.8); Monocytes % 6.8 % (1.7-12.7); Neutrophils # 3.9 10*3/uL (1.4-7.4); Neutrophils % 69.2 % (38.7-73.9); Platelet Count 386 T/CUMM (130-400); Red Blood Count 4.07 MC/CUMM (3.8-5.5); Red Cell Distribution Width 13.5 % (9.3-17.3); White Blood Count 5.6 T/CUMM (4-12)
[2017-12-21 07:00] LABS: Albumin 2.9 G/DL (3.4-5.0); Bilirubin,Total 0.5 MG/DL (0.2-1.0); Calcium 9.1 MG/DL (8.5-10.1); Osmolality,Calculated 271.8 MOS/KG (273-304)
[2017-12-21] MEDS ORDERED: DEXAMETHASONE INJ 20 MG in SODIUM CHLORIDE 0.9% 50 ML IV ONE (07:37)
[2017-12-21] MEDS ORDERED: CARBOplatin 300 MG in SODIUM CHLORIDE 0.9% 250 ML IV ONE (07:39)
[2017-12-21] MEDS: INSULIN REGULAR 100 UNIT/ML SUBCUT SCH ×4 (07:45→22:17)
[2017-12-21] MEDS: ALBUTEROL/IPRATROPIUM 3 ML NEB RESP TX PRN (08:55)
[2017-12-21] MEDS: METOPROLOL SUCCINATE XL 50 MG TABLET PO SCH (09:12)
[2017-12-21] MEDS: GRANISETRON 1 MG/1 ML VIAL IV SCH (09:15)
[2017-12-21] MEDS: DIAZEPAM 2 MG TABLET PO SCH ×2 (09:15→20:54)
[2017-12-21] MEDS: buPROPion 100 MG TABLET PO SCH ×2 (09:16→20:54)
[2017-12-21] MEDS: HEPARIN LOCK FLUSH 500 UNIT/5 ML SYRINGE IV SCH (09:16)
[2017-12-21] MEDS: FLUTICASONE 50 MCG NASAL SPRAY 16 GM BOTTLE BOTH NARES SCH ×2 (09:16→20:56)
[2017-12-21] MEDS: PANTOPRAZOLE 40 MG TABLET PO SCH (09:16)
[2017-12-21] MEDS: DEXAMETHASONE INJ 10 MG in SODIUM CHLORIDE 0.9% 50 ML IV SCH (09:16)
[2017-12-21] MEDS ORDERED: DEXTROSE 50% 25 GM/50 ML VIAL IV PRN (12:10)
[2017-12-21] MEDS ORDERED: GLUCAGON 1 MG VIAL IM PRN (12:10)
[2017-12-21] MEDS: ONDANSETRON 4 MG/2 ML VIAL IV PRN (12:56)
[2017-12-21] MEDS ORDERED: ALTEPLASE 2 MG VIAL IV ONE (15:31)
[2017-12-21] MEDS: ATORVASTATIN 10 MG TABLET PO SCH (20:54)
[2017-12-21] MEDS: ENOXAPARIN 40 MG/0.4 ML SYRINGE SUBCUT SCH (20:55)
[2017-12-22] MEDS: HYDROmorphone 2 MG/1 ML VIAL IV SCH ×4 (02:18→21:00)
[2017-12-22] MEDS: ONDANSETRON 4 MG/2 ML VIAL IV PRN ×3 (02:24→11:53)
[2017-12-22] MEDS: CARISOPRODOL 350 MG TABLET PO SCH ×3 (06:30→22:41)
[2017-12-22] MEDS: MORPHINE ER 15 MG TABLET PO SCH ×3 (06:30→22:42)
[2017-12-22] MEDS: INSULIN REGULAR 100 UNIT/ML SUBCUT SCH ×3 (08:27→18:18)
[2017-12-22] MEDS: GRANISETRON 1 MG/1 ML VIAL IV SCH (09:07)
[2017-12-22] MEDS: METOPROLOL SUCCINATE XL 50 MG TABLET PO SCH (09:12)
[2017-12-22] MEDS: DIAZEPAM 2 MG TABLET PO SCH ×2 (09:14→20:56)
[2017-12-22] MEDS: buPROPion 100 MG TABLET PO SCH ×2 (09:14→20:56)
[2017-12-22] MEDS: PANTOPRAZOLE 40 MG TABLET PO SCH (09:14)
[2017-12-22] MEDS: FLUTICASONE 50 MCG NASAL SPRAY 16 GM BOTTLE BOTH NARES SCH ×2 (09:15→21:09)
[2017-12-22] MEDS: DEXAMETHASONE INJ 10 MG in SODIUM CHLORIDE 0.9% 50 ML IV SCH (11:57)
[2017-12-22] MEDS: ALUMINUM/MAGNES/SIMETH MAX STR 30 ML UDCUP PO PRN (11:59)
[2017-12-22] MEDS: ATORVASTATIN 10 MG TABLET PO SCH (20:57)
[2017-12-22] MEDS: ENOXAPARIN 40 MG/0.4 ML SYRINGE SUBCUT SCH (21:06)
[2017-12-23] MEDS: INSULIN REGULAR 100 UNIT/ML SUBCUT SCH ×5 (01:01→20:01)
[2017-12-23] MEDS: HYDROmorphone 2 MG/1 ML VIAL IV SCH ×2 (02:14→08:20)
[2017-12-23] MEDS: ONDANSETRON 4 MG/2 ML VIAL IV PRN ×3 (02:24→18:38)
[2017-12-23] MEDS: HEPARIN LOCK FLUSH 500 UNIT/5 ML SYRINGE IV PRN (04:44)
[2017-12-23 05:25] LABS: Basophils % 0.2 % (0.0-0.8); Eosinophils % 0.2 % (0.00-10.9); Hematocrit 31.5 VOL% (35.7-47.0); Hemoglobin 10.4 GM/DL (12.0-16.0); Immature Granulocytes % 0.6 %; Immature Granulocytes Absolute 0.03 #; Lymphocytes # 1.4 10*3/uL (1.4-4.0); Lymphocytes % 27.6 % (21.3-54.2); Mean Corpuscular Hemoglobin 28 PG (27-34); Mean Corpuscular Volume 85.1 FL (87-102); Mean Platelet Volume 9.6 FL (9.6-12.0); Monocytes # 0.3 10*3/uL (0.11-0.8); Monocytes % 6.7 % (1.7-12.7); Neutrophils # 3.2 10*3/uL (1.4-7.4); Neutrophils % 64.7 % (38.7-73.9); Platelet Count 417 T/CUMM (130-400); Red Cell Distribution Width 13.3 % (9.3-17.3)
[2017-12-23 05:58] LABS: Alanine Aminotransferase 13 U/L (13-56); Albumin 2.6 G/DL (3.4-5.0); Alkaline Phosphatase 68 U/L (45-117); Aspartate Amino Transferase 9 U/L (0-37); Bilirubin,Total < 0.39 MG/DL (0.2-1.0); Blood Urea Nitrogen 9 MG/DL (7-18); Calcium 8.8 MG/DL (8.5-10.1); Glucose 67 MG/DL (74-106); Potassium 3.7 MMOL/L (3.5-5.1); Sodium 136 MMOL/L (136-145); Total Protein 5.9 G/DL (6.4-8.3)
[2017-12-23] MEDS: MORPHINE ER 15 MG TABLET PO SCH (06:44)
[2017-12-23] MEDS: CARISOPRODOL 350 MG TABLET PO SCH ×3 (06:44→22:04)
[2017-12-23] MEDS ORDERED: DEXAMETHASONE INJ 20 MG in SODIUM CHLORIDE 0.9% 50 ML IV SCH (07:59)
[2017-12-23] MEDS: GRANISETRON 1 MG/1 ML VIAL IV SCH ×2 (08:23→10:19)
[2017-12-23] MEDS: buPROPion 100 MG TABLET PO SCH ×2 (08:27→20:40)
[2017-12-23] MEDS: DIAZEPAM 2 MG TABLET PO SCH ×2 (08:27→20:40)
[2017-12-23] MEDS: PANTOPRAZOLE 40 MG TABLET PO SCH (08:27)
[2017-12-23] MEDS: FLUTICASONE 50 MCG NASAL SPRAY 16 GM BOTTLE BOTH NARES SCH ×2 (08:28→20:48)
[2017-12-23] MEDS: METOPROLOL SUCCINATE XL 50 MG TABLET PO SCH (08:29)
[2017-12-23] MEDS ORDERED: ALBUMIN IV ONE (08:38)
[2017-12-23] MEDS ORDERED: PACLITAXEL IV ONE (08:38)
[2017-12-23] MEDS ORDERED: DEXAMETHASONE INJ 20 MG in SODIUM CHLORIDE 0.9% 50 ML IV ONE (08:38)
[2017-12-23] MEDS: HYDROmorphone 2 MG/1 ML VIAL IV PRN ×3 (12:20→20:41)
[2017-12-23] MEDS: MORPHINE ER 30 MG TABLET PO SCH ×3 (14:52→22:04)
[2017-12-23] MEDS: DEXAMETHASONE INJ 10 MG in SODIUM CHLORIDE 0.9% 50 ML IV SCH (15:11)
[2017-12-23] MEDS: ATORVASTATIN 10 MG TABLET PO SCH (20:40)
[2017-12-23] MEDS: ENOXAPARIN 40 MG/0.4 ML SYRINGE SUBCUT SCH (20:46)
[2017-12-24] MEDS: HYDROmorphone 2 MG/1 ML VIAL IV PRN ×5 (00:23→20:13)
[2017-12-24] MEDS: INSULIN REGULAR 100 UNIT/ML SUBCUT SCH ×4 (00:36→19:20)
[2017-12-24] MEDS: ONDANSETRON 4 MG/2 ML VIAL IV PRN ×3 (02:13→20:16)
[2017-12-24] MEDS: ALUMINUM/MAGNES/SIMETH MAX STR 30 ML UDCUP PO PRN ×2 (04:48→12:29)
[2017-12-24 06:15] LABS: Basophils % 0.2 % (0.0-0.8); Hemoglobin 11.2 GM/DL (12.0-16.0); Immature Granulocytes % 0.4 %; Immature Granulocytes Absolute 0.02 #; Lymphocytes # 0.9 10*3/uL (1.4-4.0); Mean Corpuscular HGB Conc 33.9 GM/DL (32-36); Mean Corpuscular Hemoglobin 29 PG (27-34); Mean Corpuscular Volume 84.6 FL (87-102); Mean Platelet Volume 9.7 FL (9.6-12.0); Monocytes # 0.3 10*3/uL (0.11-0.8); Monocytes % 5.8 % (1.7-12.7); Neutrophils # 3.3 10*3/uL (1.4-7.4); Neutrophils % 73.6 % (38.7-73.9); Platelet Count 467 T/CUMM (130-400); Red Cell Distribution Width 13.3 % (9.3-17.3); White Blood Count 4.5 T/CUMM (4-12)
[2017-12-24 06:21] LABS: Calcium 9.1 MG/DL (8.5-10.1); Osmolality,Calculated 266.2 MOS/KG (273-304); Potassium 4.5 MMOL/L (3.5-5.1)
[2017-12-24] MEDS: MORPHINE ER 30 MG TABLET PO SCH ×3 (06:50→22:02)
[2017-12-24] MEDS: CARISOPRODOL 350 MG TABLET PO SCH ×3 (06:51→22:04)
[2017-12-24] MEDS: ALBUTEROL/IPRATROPIUM 3 ML NEB RESP TX PRN ×3 (07:08→19:52)
[2017-12-24] MEDS: GRANISETRON 1 MG/1 ML VIAL IV SCH ×2 (09:06→09:09)
[2017-12-24] MEDS: DIAZEPAM 2 MG TABLET PO SCH ×2 (09:08→20:18)
[2017-12-24] MEDS: buPROPion 100 MG TABLET PO SCH ×2 (09:08→20:18)
[2017-12-24] MEDS: METOPROLOL SUCCINATE XL 50 MG TABLET PO SCH (09:09)
[2017-12-24] MEDS: FLUTICASONE 50 MCG NASAL SPRAY 16 GM BOTTLE BOTH NARES SCH ×2 (09:09→20:21)
[2017-12-24] MEDS: PANTOPRAZOLE 40 MG TABLET PO SCH (09:09)
[2017-12-24] MEDS: DEXAMETHASONE INJ 10 MG in SODIUM CHLORIDE 0.9% 50 ML IV SCH (09:23)
[2017-12-24] MEDS: ATORVASTATIN 10 MG TABLET PO SCH (20:18)
[2017-12-24] MEDS: ENOXAPARIN 40 MG/0.4 ML SYRINGE SUBCUT SCH (20:19)
[2017-12-24] MEDS: ZINC OXIDE PASTE 113 GM TUBE TOP PRN (20:21)
[2017-12-25] MEDS: HYDROmorphone 2 MG/1 ML VIAL IV PRN ×2 (01:53→09:02)
[2017-12-25] MEDS: ONDANSETRON 4 MG/2 ML VIAL IV PRN ×4 (01:57→19:58)
[2017-12-25] MEDS: INSULIN REGULAR 100 UNIT/ML SUBCUT SCH ×4 (02:03→21:32)
[2017-12-25] MEDS: CARISOPRODOL 350 MG TABLET PO SCH ×3 (06:21→21:30)
[2017-12-25] MEDS: MORPHINE ER 30 MG TABLET PO SCH ×3 (06:21→21:31)
[2017-12-25] MEDS: ALBUTEROL/IPRATROPIUM 3 ML NEB RESP TX PRN ×2 (08:12→20:50)
[2017-12-25] MEDS: ALUMINUM/MAGNES/SIMETH MAX STR 30 ML UDCUP PO PRN ×2 (09:01→18:04)
[2017-12-25] MEDS: GRANISETRON 1 MG/1 ML VIAL IV SCH ×2 (09:02→09:04)
[2017-12-25] MEDS: buPROPion 100 MG TABLET PO SCH ×2 (09:03→21:31)
[2017-12-25] MEDS: DIAZEPAM 2 MG TABLET PO SCH ×2 (09:03→21:31)
[2017-12-25] MEDS: PANTOPRAZOLE 40 MG TABLET PO SCH (09:03)
[2017-12-25] MEDS: FLUTICASONE 50 MCG NASAL SPRAY 16 GM BOTTLE BOTH NARES SCH ×2 (09:04→21:32)
[2017-12-25] MEDS: DEXAMETHASONE INJ 10 MG in SODIUM CHLORIDE 0.9% 50 ML IV SCH (09:05)
[2017-12-25] MEDS: METOPROLOL SUCCINATE XL 50 MG TABLET PO SCH (09:05)
[2017-12-25] MEDS: MEPERIDINE 50 MG/1 ML VIAL IV PRN ×2 (12:34→19:46)
[2017-12-25] MEDS: ENOXAPARIN 40 MG/0.4 ML SYRINGE SUBCUT SCH (21:30)
[2017-12-25] MEDS: ATORVASTATIN 10 MG TABLET PO SCH (21:30)
[2017-12-26] MEDS: INSULIN REGULAR 100 UNIT/ML SUBCUT SCH ×4 (01:38→18:56)
[2017-12-26] MEDS: ONDANSETRON 4 MG/2 ML VIAL IV PRN ×4 (01:49→23:10)
[2017-12-26] MEDS: MEPERIDINE 50 MG/1 ML VIAL IV PRN ×4 (01:52→23:12)
[2017-12-26] MEDS: MORPHINE ER 30 MG TABLET PO SCH ×3 (06:20→22:31)
[2017-12-26] MEDS: CARISOPRODOL 350 MG TABLET PO SCH ×3 (06:21→22:31)
[2017-12-26] MEDS: ALBUTEROL/IPRATROPIUM 3 ML NEB RESP TX PRN (08:13)
[2017-12-26] MEDS: ALUMINUM/MAGNES/SIMETH MAX STR 30 ML UDCUP PO PRN (08:48)
[2017-12-26] MEDS: DIAZEPAM 2 MG TABLET PO SCH ×2 (09:47→20:47)
[2017-12-26] MEDS: buPROPion 100 MG TABLET PO SCH ×2 (09:47→20:47)
[2017-12-26] MEDS: GRANISETRON 1 MG/1 ML VIAL IV SCH ×2 (09:47→09:50)
[2017-12-26] MEDS: FLUTICASONE 50 MCG NASAL SPRAY 16 GM BOTTLE BOTH NARES SCH ×2 (09:48→20:48)
[2017-12-26] MEDS: DEXAMETHASONE INJ 10 MG in SODIUM CHLORIDE 0.9% 50 ML IV SCH (09:48)
[2017-12-26] MEDS: METOPROLOL SUCCINATE XL 50 MG TABLET PO SCH (09:50)
[2017-12-26] MEDS: PANTOPRAZOLE 40 MG TABLET PO SCH ×2 (10:36→20:48)
[2017-12-26] MEDS: ATORVASTATIN 10 MG TABLET PO SCH (20:47)
[2017-12-26] MEDS: ENOXAPARIN 40 MG/0.4 ML SYRINGE SUBCUT SCH (20:47)
[2017-12-27] MEDS: INSULIN REGULAR 100 UNIT/ML SUBCUT SCH ×4 (01:53→21:07)
[2017-12-27] MEDS: MORPHINE ER 30 MG TABLET PO SCH ×3 (05:50→22:08)
[2017-12-27] MEDS: CARISOPRODOL 350 MG TABLET PO SCH ×3 (05:50→22:08)
[2017-12-27] MEDS: guaiFENesin 200 MG/10 ML UDCUP PO PRN ×2 (05:51→18:16)
[2017-12-27] MEDS: ONDANSETRON 4 MG/2 ML VIAL IV PRN ×2 (05:51→12:59)
[2017-12-27 06:17] LABS: Basophils % 0.2 % (0.0-0.8); Eosinophils # 0.1 10*3/uL (0.0-0.87); Eosinophils % 1.4 % (0.00-10.9); Hematocrit 30.4 VOL% (35.7-47.0); Hemoglobin 9.9 GM/DL (12.0-16.0); Immature Granulocytes % 0.7 %; Immature Granulocytes Absolute 0.03 #; Lymphocytes # 0.9 10*3/uL (1.4-4.0); Mean Corpuscular HGB Conc 32.6 GM/DL (32-36); Mean Corpuscular Hemoglobin 28 PG (27-34); Mean Corpuscular Volume 85.4 FL (87-102); Mean Platelet Volume 8.9 FL (9.6-12.0); Monocytes # 0.3 10*3/uL (0.11-0.8); Monocytes % 7.3 % (1.7-12.7); Neutrophils # 3.1 10*3/uL (1.4-7.4); Neutrophils % 70.4 % (38.7-73.9); Platelet Count 397 T/CUMM (130-400); Red Blood Count 3.56 MC/CUMM (3.8-5.5); Red Cell Distribution Width 13.2 % (9.3-17.3); White Blood Count 4.4 T/CUMM (4-12)
[2017-12-27 08:48] LABS: Alanine Aminotransferase 12 U/L (13-56); Albumin 2.5 G/DL (3.4-5.0); Alkaline Phosphatase 77 U/L (45-117); Aspartate Amino Transferase 7 U/L (0-37); Bilirubin,Total < 0.39 MG/DL (0.2-1.0); Blood Urea Nitrogen 7 MG/DL (7-18); Calcium 8.9 MG/DL (8.5-10.1); Glucose 103 MG/DL (74-106); Osmolality,Calculated 265.2 MOS/KG (273-304); Potassium 3.3 MMOL/L (3.5-5.1); Sodium 134 MMOL/L (136-145); Total Protein 6.2 G/DL (6.4-8.3)
[2017-12-27] MEDS: ALUMINUM/MAGNES/SIMETH MAX STR 30 ML UDCUP PO PRN (09:34)
[2017-12-27] MEDS: GRANISETRON 1 MG/1 ML VIAL IV SCH ×2 (09:34→09:38)
[2017-12-27] MEDS: MEPERIDINE 50 MG/1 ML VIAL IV PRN ×2 (10:32→17:17)
[2017-12-27] MEDS: buPROPion 100 MG TABLET PO SCH ×2 (10:37→21:06)
[2017-12-27] MEDS: FLUCONAZOLE 100 MG TABLET PO SCH (10:37)
[2017-12-27] MEDS: DIAZEPAM 2 MG TABLET PO SCH ×2 (10:37→21:05)
[2017-12-27] MEDS: FLUTICASONE 50 MCG NASAL SPRAY 16 GM BOTTLE BOTH NARES SCH ×2 (10:38→23:57)
[2017-12-27] MEDS: PANTOPRAZOLE 40 MG TABLET PO SCH ×2 (10:38→21:06)
[2017-12-27] MEDS: METOPROLOL SUCCINATE XL 50 MG TABLET PO SCH (10:38)
[2017-12-27] MEDS: DEXAMETHASONE INJ 10 MG in SODIUM CHLORIDE 0.9% 50 ML IV SCH (12:58)
[2017-12-27] MEDS: ATORVASTATIN 10 MG TABLET PO SCH (21:05)
[2017-12-27] MEDS: ENOXAPARIN 40 MG/0.4 ML SYRINGE SUBCUT SCH (21:07)
[2017-12-28] MEDS: MEPERIDINE 50 MG/1 ML VIAL IV PRN ×4 (00:10→17:54)
[2017-12-28] MEDS: ALUMINUM/MAGNES/SIMETH MAX STR 30 ML UDCUP PO PRN ×4 (00:17→17:53)
[2017-12-28] MEDS: INSULIN REGULAR 100 UNIT/ML SUBCUT SCH ×4 (03:19→21:21)
[2017-12-28 05:15] LABS: Basophils % 0.3 % (0.0-0.8); Eosinophils % 1.2 % (0.00-10.9); Hematocrit 29.2 VOL% (35.7-47.0); Hemoglobin 9.4 GM/DL (12.0-16.0); Immature Granulocytes % 0.9 %; Immature Granulocytes Absolute 0.03 #; Lymphocytes # 0.9 10*3/uL (1.4-4.0); Lymphocytes % 25.8 % (21.3-54.2); Mean Corpuscular HGB Conc 32.2 GM/DL (32-36); Mean Corpuscular Hemoglobin 28 PG (27-34); Mean Corpuscular Volume 87.2 FL (87-102); Mean Platelet Volume 9.2 FL (9.6-12.0); Monocytes # 0.3 10*3/uL (0.11-0.8); Monocytes % 10.3 % (1.7-12.7); Neutrophils % 61.5 % (38.7-73.9); Platelet Count 379 T/CUMM (130-400); Red Blood Count 3.35 MC/CUMM (3.8-5.5); Red Cell Distribution Width 13.2 % (9.3-17.3); White Blood Count 3.3 T/CUMM (4-12)
[2017-12-28 05:41] LABS: Alanine Aminotransferase 10 U/L (13-56); Albumin 2.5 G/DL (3.4-5.0); Alkaline Phosphatase 79 U/L (45-117); Aspartate Amino Transferase 6 U/L (0-37); Bilirubin,Total < 0.39 MG/DL (0.2-1.0); Blood Urea Nitrogen 5 MG/DL (7-18); Calcium 8.5 MG/DL (8.5-10.1); Glucose 103 MG/DL (74-106); Osmolality,Calculated 266.1 MOS/KG (273-304); Potassium 3.8 MMOL/L (3.5-5.1); Sodium 135 MMOL/L (136-145); Total Protein 6.3 G/DL (6.4-8.3)
[2017-12-28] MEDS: MORPHINE ER 30 MG TABLET PO SCH ×3 (06:08→23:07)
[2017-12-28] MEDS: CARISOPRODOL 350 MG TABLET PO SCH ×3 (06:08→23:07)
[2017-12-28] MEDS: ONDANSETRON 4 MG/2 ML VIAL IV PRN ×3 (06:17→17:51)
[2017-12-28] MEDS ORDERED: CARBOplatin 300 MG in SODIUM CHLORIDE 0.9% 250 ML IV ONE (09:00)
[2017-12-28] MEDS: buPROPion 100 MG TABLET PO SCH ×2 (10:06→21:20)
[2017-12-28] MEDS: PANTOPRAZOLE 40 MG TABLET PO SCH ×2 (10:06→21:19)
[2017-12-28] MEDS: DIAZEPAM 2 MG TABLET PO SCH ×2 (10:06→21:20)
[2017-12-28] MEDS: METOPROLOL SUCCINATE XL 50 MG TABLET PO SCH (10:07)
[2017-12-28] MEDS: FLUCONAZOLE 100 MG TABLET PO SCH (10:07)
[2017-12-28] MEDS: FLUTICASONE 50 MCG NASAL SPRAY 16 GM BOTTLE BOTH NARES SCH (10:07)
[2017-12-28] MEDS: guaiFENesin 200 MG/10 ML UDCUP PO PRN ×2 (10:08→23:07)
[2017-12-28] MEDS: GRANISETRON 1 MG/1 ML VIAL IV SCH ×2 (10:08→12:30)
[2017-12-28] MEDS: ALBUTEROL/IPRATROPIUM 3 ML NEB RESP TX PRN (11:48)
[2017-12-28] MEDS: DEXAMETHASONE INJ 10 MG in SODIUM CHLORIDE 0.9% 50 ML IV SCH (12:00)
[2017-12-28] MEDS: ATORVASTATIN 10 MG TABLET PO SCH (21:20)
[2017-12-28] MEDS: ENOXAPARIN 40 MG/0.4 ML SYRINGE SUBCUT SCH (21:21)
[2017-12-29] MEDS: MEPERIDINE 50 MG/1 ML VIAL IV PRN ×4 (00:21→22:23)
[2017-12-29] MEDS: ALUMINUM/MAGNES/SIMETH MAX STR 30 ML UDCUP PO PRN ×3 (00:25→14:28)
[2017-12-29] MEDS: ONDANSETRON 4 MG/2 ML VIAL IV PRN ×5 (00:26→22:20)
[2017-12-29] MEDS: FLUTICASONE 50 MCG NASAL SPRAY 16 GM BOTTLE BOTH NARES SCH ×3 (02:03→22:30)
[2017-12-29] MEDS: INSULIN REGULAR 100 UNIT/ML SUBCUT SCH ×4 (02:04→18:50)
[2017-12-29 06:04] LABS: Basophils % 0.3 % (0.0-0.8); Eosinophils % 0.8 % (0.00-10.9); Hematocrit 29.5 VOL% (35.7-47.0); Hemoglobin 9.5 GM/DL (12.0-16.0); Immature Granulocytes % 0.8 %; Immature Granulocytes Absolute 0.03 #; Lymphocytes # 0.9 10*3/uL (1.4-4.0); Lymphocytes % 23.4 % (21.3-54.2); Mean Corpuscular HGB Conc 32.2 GM/DL (32-36); Mean Corpuscular Hemoglobin 28 PG (27-34); Mean Corpuscular Volume 87.5 FL (87-102); Mean Platelet Volume 9.4 FL (9.6-12.0); Monocytes # 0.4 10*3/uL (0.11-0.8); Monocytes % 9.7 % (1.7-12.7); Neutrophils # 2.5 10*3/uL (1.4-7.4); Platelet Count 397 T/CUMM (130-400); Red Blood Count 3.37 MC/CUMM (3.8-5.5); Red Cell Distribution Width 13.2 % (9.3-17.3); White Blood Count 3.8 T/CUMM (4-12)
[2017-12-29 06:29] LABS: Albumin 2.6 G/DL (3.4-5.0); Bilirubin,Total 0.5 MG/DL (0.2-1.0); Calcium 8.8 MG/DL (8.5-10.1); Osmolality,Calculated 269.8 MOS/KG (273-304); Potassium 3.6 MMOL/L (3.5-5.1); Total Protein 6.2 G/DL (6.4-8.3)
[2017-12-29 06:38] LABS: Giant Platelets Few; Hypochromasia 1+; Lymphocytes 19 % (20-55); Ovalocytes Slight; Platelet Estimate Adequate; Segmented Neutrophils 70 % (50-85); Total Cells Counted 100
[2017-12-29] MEDS: MORPHINE ER 30 MG TABLET PO SCH ×3 (06:43→22:28)
[2017-12-29] MEDS: CARISOPRODOL 350 MG TABLET PO SCH ×3 (06:43→22:28)
[2017-12-29] MEDS ORDERED: CARBOplatin 300 MG in SODIUM CHLORIDE 0.9% 250 ML IV ONE (09:00)
[2017-12-29] MEDS: GRANISETRON 1 MG/1 ML VIAL IV SCH ×2 (09:10→09:19)
[2017-12-29] MEDS: DEXAMETHASONE INJ 10 MG in SODIUM CHLORIDE 0.9% 50 ML IV SCH (09:17)
[2017-12-29] MEDS: buPROPion 100 MG TABLET PO SCH ×2 (09:19→22:27)
[2017-12-29] MEDS: DIAZEPAM 2 MG TABLET PO SCH ×2 (09:20→22:27)
[2017-12-29] MEDS: FLUCONAZOLE 100 MG TABLET PO SCH (09:20)
[2017-12-29] MEDS: PANTOPRAZOLE 40 MG TABLET PO SCH ×2 (09:20→22:28)
[2017-12-29] MEDS: METOPROLOL SUCCINATE XL 50 MG TABLET PO SCH (09:20)
[2017-12-29] MEDS: guaiFENesin 200 MG/10 ML UDCUP PO PRN (14:28)
[2017-12-29] MEDS: ATORVASTATIN 10 MG TABLET PO SCH (22:27)
[2017-12-29] MEDS: ENOXAPARIN 40 MG/0.4 ML SYRINGE SUBCUT SCH (22:32)
[2017-12-30] MEDS: INSULIN REGULAR 100 UNIT/ML SUBCUT SCH ×4 (00:52→19:17)
[2017-12-30] MEDS: MEPERIDINE 50 MG/1 ML VIAL IV PRN ×4 (04:33→22:10)
[2017-12-30] MEDS: ALUMINUM/MAGNES/SIMETH MAX STR 30 ML UDCUP PO PRN ×3 (04:33→22:19)
[2017-12-30] MEDS: ONDANSETRON 4 MG/2 ML VIAL IV PRN ×4 (04:37→22:19)
[2017-12-30 05:37] LABS: Basophils % 0.3 % (0.0-0.8); Eosinophils % 0.8 % (0.00-10.9); Hematocrit 30.1 VOL% (35.7-47.0); Hemoglobin 9.6 GM/DL (12.0-16.0); Immature Granulocytes % 1.4 %; Immature Granulocytes Absolute 0.05 #; Lymphocytes # 0.7 10*3/uL (1.4-4.0); Lymphocytes % 20.4 % (21.3-54.2); Mean Corpuscular HGB Conc 31.9 GM/DL (32-36); Mean Corpuscular Hemoglobin 28 PG (27-34); Mean Platelet Volume 9.4 FL (9.6-12.0); Monocytes # 0.4 10*3/uL (0.11-0.8); Monocytes % 11.2 % (1.7-12.7); Neutrophils # 2.4 10*3/uL (1.4-7.4); Neutrophils % 65.9 % (38.7-73.9); Platelet Count 384 T/CUMM (130-400); Red Blood Count 3.42 MC/CUMM (3.8-5.5); Red Cell Distribution Width 13.3 % (9.3-17.3); White Blood Count 3.6 T/CUMM (4-12)
[2017-12-30] MEDS: MORPHINE ER 30 MG TABLET PO SCH ×3 (06:17→22:09)
[2017-12-30] MEDS: CARISOPRODOL 350 MG TABLET PO SCH ×3 (06:19→22:09)
[2017-12-30 06:21] LABS: Alanine Aminotransferase 10 U/L (13-56); Albumin 2.5 G/DL (3.4-5.0); Alkaline Phosphatase 91 U/L (45-117); Aspartate Amino Transferase 5 U/L (0-37); Bilirubin,Total < 0.39 MG/DL (0.2-1.0); Blood Urea Nitrogen 5 MG/DL (7-18); Calcium 8.4 MG/DL (8.5-10.1); Glucose 89 MG/DL (74-106); Osmolality,Calculated 270.7 MOS/KG (273-304); Potassium 3.8 MMOL/L (3.5-5.1); Sodium 138 MMOL/L (136-145); Total Protein 5.7 G/DL (6.4-8.3)
[2017-12-30] MEDS: guaiFENesin 200 MG/10 ML UDCUP PO PRN ×2 (09:18→20:26)
[2017-12-30] MEDS: DIAZEPAM 2 MG TABLET PO SCH ×2 (10:21→20:25)
[2017-12-30] MEDS: FLUCONAZOLE 100 MG TABLET PO SCH (10:21)
[2017-12-30] MEDS: PANTOPRAZOLE 40 MG TABLET PO SCH ×2 (10:21→20:25)
[2017-12-30] MEDS: buPROPion 100 MG TABLET PO SCH ×2 (10:21→20:25)
[2017-12-30] MEDS: GRANISETRON 1 MG/1 ML VIAL IV SCH (10:21)
[2017-12-30] MEDS: FLUTICASONE 50 MCG NASAL SPRAY 16 GM BOTTLE BOTH NARES SCH ×2 (10:22→20:27)
[2017-12-30] MEDS: METOPROLOL SUCCINATE XL 50 MG TABLET PO SCH (10:22)
[2017-12-30] MEDS: DEXAMETHASONE INJ 10 MG in SODIUM CHLORIDE 0.9% 50 ML IV SCH (10:22)
[2017-12-30] MEDS: ATORVASTATIN 10 MG TABLET PO SCH (20:25)
[2017-12-30] MEDS: ENOXAPARIN 40 MG/0.4 ML SYRINGE SUBCUT SCH (20:26)
[2017-12-31] MEDS: INSULIN REGULAR 100 UNIT/ML SUBCUT SCH ×4 (00:11→18:43)
[2017-12-31 04:44] LABS: Basophils % 0.6 % (0.0-0.8); Eosinophils % 0.6 % (0.00-10.9); Hematocrit 29.8 VOL% (35.7-47.0); Hemoglobin 9.4 GM/DL (12.0-16.0); Immature Granulocytes % 0.9 %; Immature Granulocytes Absolute 0.03 #; Lymphocytes # 0.7 10*3/uL (1.4-4.0); Lymphocytes % 22.2 % (21.3-54.2); Mean Corpuscular HGB Conc 31.5 GM/DL (32-36); Mean Corpuscular Hemoglobin 28 PG (27-34); Mean Corpuscular Volume 88.7 FL (87-102); Mean Platelet Volume 9.4 FL (9.6-12.0); Monocytes # 0.4 10*3/uL (0.11-0.8); Neutrophils % 63.7 % (38.7-73.9); Platelet Count 368 T/CUMM (130-400); Red Blood Count 3.36 MC/CUMM (3.8-5.5); Red Cell Distribution Width 13.5 % (9.3-17.3); White Blood Count 3.2 T/CUMM (4-12)
[2017-12-31 05:30] LABS: Alanine Aminotransferase 12 U/L (13-56); Albumin 2.6 G/DL (3.4-5.0); Alkaline Phosphatase 90 U/L (45-117); Aspartate Amino Transferase 5 U/L (0-37); Bilirubin,Total < 0.39 MG/DL (0.2-1.0); Blood Urea Nitrogen 5 MG/DL (7-18); Calcium 8.5 MG/DL (8.5-10.1); Glucose 95 MG/DL (74-106); Osmolality,Calculated 269.8 MOS/KG (273-304); Potassium 3.9 MMOL/L (3.5-5.1); Sodium 137 MMOL/L (136-145); Total Protein 5.5 G/DL (6.4-8.3)
[2017-12-31] MEDS: ALUMINUM/MAGNES/SIMETH MAX STR 30 ML UDCUP PO PRN (05:38)
[2017-12-31] MEDS: CARISOPRODOL 350 MG TABLET PO SCH ×3 (05:39→21:03)
[2017-12-31] MEDS: MORPHINE ER 30 MG TABLET PO SCH ×3 (05:39→21:04)
[2017-12-31] MEDS: MEPERIDINE 50 MG/1 ML VIAL IV PRN ×3 (05:40→18:39)
[2017-12-31] MEDS: ONDANSETRON 4 MG/2 ML VIAL IV PRN ×4 (05:44→21:29)
[2017-12-31] MEDS: GRANISETRON 1 MG/1 ML VIAL IV SCH (10:35)
[2017-12-31] MEDS: FLUTICASONE 50 MCG NASAL SPRAY 16 GM BOTTLE BOTH NARES SCH ×2 (10:41→21:02)
[2017-12-31] MEDS: METOPROLOL SUCCINATE XL 50 MG TABLET PO SCH (10:41)
[2017-12-31] MEDS: DIAZEPAM 2 MG TABLET PO SCH ×2 (10:43→21:03)
[2017-12-31] MEDS: FLUCONAZOLE 100 MG TABLET PO SCH (10:43)
[2017-12-31] MEDS: buPROPion 100 MG TABLET PO SCH ×2 (10:43→21:04)
[2017-12-31] MEDS: PANTOPRAZOLE 40 MG TABLET PO SCH ×2 (10:44→21:04)
[2017-12-31] MEDS: DEXAMETHASONE INJ 10 MG in SODIUM CHLORIDE 0.9% 50 ML IV SCH (11:53)
[2017-12-31] MEDS: MYLANTA/LIDO VISC 2:1 300 ML BOTTLE SWISH/SWAL PRN ×3 (11:57→21:08)
[2017-12-31] MEDS: ATORVASTATIN 10 MG TABLET PO SCH (21:03)
[2017-12-31] MEDS: ENOXAPARIN 40 MG/0.4 ML SYRINGE SUBCUT SCH (21:04)
[2017-12-31] MEDS: guaiFENesin 200 MG/10 ML UDCUP PO PRN (21:04)
[2018-01-01] MEDS: INSULIN REGULAR 100 UNIT/ML SUBCUT SCH ×4 (02:43→18:16)
[2018-01-01] MEDS: MYLANTA/LIDO VISC 2:1 300 ML BOTTLE SWISH/SWAL PRN ×5 (02:44→22:13)
[2018-01-01] MEDS: ONDANSETRON 4 MG/2 ML VIAL IV PRN (02:45)
[2018-01-01] MEDS: MEPERIDINE 50 MG/1 ML VIAL IV PRN ×4 (02:46→22:14)
[2018-01-01 04:44] LABS: Basophils % 0.3 % (0.0-0.8); Eosinophils % 0.6 % (0.00-10.9); Hematocrit 30.9 VOL% (35.7-47.0); Hemoglobin 9.8 GM/DL (12.0-16.0); Immature Granulocytes % 0.6 %; Immature Granulocytes Absolute 0.02 #; Lymphocytes # 0.6 10*3/uL (1.4-4.0); Lymphocytes % 19.5 % (21.3-54.2); Mean Corpuscular HGB Conc 31.7 GM/DL (32-36); Mean Corpuscular Hemoglobin 28 PG (27-34); Mean Corpuscular Volume 87.8 FL (87-102); Mean Platelet Volume 8.9 FL (9.6-12.0); Monocytes # 0.4 10*3/uL (0.11-0.8); Monocytes % 11.6 % (1.7-12.7); Neutrophils # 2.2 10*3/uL (1.4-7.4); Neutrophils % 67.4 % (38.7-73.9); Platelet Count 361 T/CUMM (130-400); Red Blood Count 3.52 MC/CUMM (3.8-5.5); Red Cell Distribution Width 13.5 % (9.3-17.3); White Blood Count 3.3 T/CUMM (4-12)
[2018-01-01 05:18] LABS: Albumin 2.8 G/DL (3.4-5.0); Bilirubin,Total 0.4 MG/DL (0.2-1.0); Calcium 8.6 MG/DL (8.5-10.1); Potassium 4.1 MMOL/L (3.5-5.1)
[2018-01-01 05:44] LABS: Hypochromasia 1+; Microcytosis 1+
[2018-01-01 05:45] LABS: Platelet Estimate Normal
[2018-01-01] MEDS: PROMETHAZINE INJ 25 MG in SODIUM CHLORIDE 0.9% 50 ML IV PRN (05:51)
[2018-01-01] MEDS: MORPHINE ER 30 MG TABLET PO SCH ×3 (05:51→22:11)
[2018-01-01] MEDS: CARISOPRODOL 350 MG TABLET PO SCH ×3 (05:52→22:11)
[2018-01-01] MEDS: DIAZEPAM 2 MG TABLET PO SCH ×2 (08:34→20:14)
[2018-01-01] MEDS: buPROPion 100 MG TABLET PO SCH ×2 (08:34→20:13)
[2018-01-01] MEDS: PANTOPRAZOLE 40 MG TABLET PO SCH ×2 (08:34→20:13)
[2018-01-01] MEDS: FLUCONAZOLE 100 MG TABLET PO SCH (08:34)
[2018-01-01] MEDS: METOPROLOL SUCCINATE XL 50 MG TABLET PO SCH (08:35)
[2018-01-01] MEDS: FLUTICASONE 50 MCG NASAL SPRAY 16 GM BOTTLE BOTH NARES SCH (08:35)
[2018-01-01] MEDS: GRANISETRON 1 MG/1 ML VIAL IV SCH (08:35)
[2018-01-01] MEDS: DEXAMETHASONE INJ 10 MG in SODIUM CHLORIDE 0.9% 50 ML IV SCH (09:39)
[2018-01-01] MEDS ORDERED: CYANOCOBALAMIN 1000 MCG/1 ML VIAL IM ONE (11:05)
[2018-01-01] MEDS: FOLIC ACID 1 MG TABLET PO SCH (14:16)
[2018-01-01] MEDS: ATORVASTATIN 10 MG TABLET PO SCH (20:13)
[2018-01-01] MEDS: ENOXAPARIN 40 MG/0.4 ML SYRINGE SUBCUT SCH (20:15)
[2018-01-02] MEDS: FLUTICASONE 50 MCG NASAL SPRAY 16 GM BOTTLE BOTH NARES SCH ×3 (00:13→20:55)
[2018-01-02] MEDS: INSULIN REGULAR 100 UNIT/ML SUBCUT SCH ×4 (02:45→19:20)
[2018-01-02] MEDS: HEPARIN LOCK FLUSH 500 UNIT/5 ML SYRINGE IV PRN (04:38)
[2018-01-02] MEDS: MEPERIDINE 50 MG/1 ML VIAL IV PRN ×3 (04:53→19:10)
[2018-01-02] MEDS: ONDANSETRON 4 MG/2 ML VIAL IV PRN ×2 (04:58→08:33)
[2018-01-02] MEDS: CARISOPRODOL 350 MG TABLET PO SCH ×3 (06:56→22:24)
[2018-01-02] MEDS: MORPHINE ER 30 MG TABLET PO SCH ×3 (06:56→22:24)
[2018-01-02 07:11] LABS: Basophils % 0.3 % (0.0-0.8); Hematocrit 31.3 VOL% (35.7-47.0); Hemoglobin 9.9 GM/DL (12.0-16.0); Immature Granulocytes % 0.3 %; Immature Granulocytes Absolute 0.01 #; Lymphocytes # 0.5 10*3/uL (1.4-4.0); Lymphocytes % 16.3 % (21.3-54.2); Mean Corpuscular HGB Conc 31.6 GM/DL (32-36); Mean Corpuscular Hemoglobin 28 PG (27-34); Mean Corpuscular Volume 87.4 FL (87-102); Mean Platelet Volume 8.8 FL (9.6-12.0); Monocytes # 0.3 10*3/uL (0.11-0.8); Monocytes % 10.9 % (1.7-12.7); Neutrophils # 2.2 10*3/uL (1.4-7.4); Neutrophils % 71.2 % (38.7-73.9); Platelet Count 313 T/CUMM (130-400); Red Blood Count 3.58 MC/CUMM (3.8-5.5); Red Cell Distribution Width 13.6 % (9.3-17.3); White Blood Count 3.1 T/CUMM (4-12)
[2018-01-02 08:02] LABS: Alanine Aminotransferase 14 U/L (13-56); Albumin 2.8 G/DL (3.4-5.0); Alkaline Phosphatase 104 U/L (45-117); Aspartate Amino Transferase 8 U/L (0-37); Bilirubin,Total < 0.39 MG/DL (0.2-1.0); Blood Urea Nitrogen 6 MG/DL (7-18); Calcium 8.6 MG/DL (8.5-10.1); Glucose 108 MG/DL (74-106); Osmolality,Calculated 271.8 MOS/KG (273-304); Potassium 4.3 MMOL/L (3.5-5.1); Sodium 137 MMOL/L (136-145); Total Protein 5.9 G/DL (6.4-8.3)
[2018-01-02] MEDS: MYLANTA/LIDO VISC 2:1 300 ML BOTTLE SWISH/SWAL PRN ×2 (08:32→19:10)
[2018-01-02] MEDS: GRANISETRON 1 MG/1 ML VIAL IV SCH (08:36)
[2018-01-02] MEDS: DIAZEPAM 2 MG TABLET PO SCH ×2 (08:40→20:53)
[2018-01-02] MEDS: buPROPion 100 MG TABLET PO SCH ×2 (08:40→20:53)
[2018-01-02] MEDS: FLUCONAZOLE 100 MG TABLET PO SCH (08:40)
[2018-01-02] MEDS: FOLIC ACID 1 MG TABLET PO SCH (08:40)
[2018-01-02] MEDS: PANTOPRAZOLE 40 MG TABLET PO SCH ×2 (08:40→20:53)
[2018-01-02] MEDS: METOPROLOL SUCCINATE XL 50 MG TABLET PO SCH (08:41)
[2018-01-02] MEDS: DEXAMETHASONE INJ 10 MG in SODIUM CHLORIDE 0.9% 50 ML IV SCH (09:59)
[2018-01-02] MEDS ORDERED: ALTEPLASE 2 MG VIAL IV ONE (11:42)
[2018-01-02] MEDS: PROMETHAZINE INJ 25 MG in SODIUM CHLORIDE 0.9% 50 ML IV PRN (19:17)
[2018-01-02] MEDS: ATORVASTATIN 10 MG TABLET PO SCH (20:53)
[2018-01-02] MEDS: ENOXAPARIN 40 MG/0.4 ML SYRINGE SUBCUT SCH (20:55)
[2018-01-03] MEDS: MEPERIDINE 50 MG/1 ML VIAL IV PRN ×3 (01:15→16:47)
[2018-01-03] MEDS: ALUMINUM/MAGNES/SIMETH MAX STR 30 ML UDCUP PO PRN (01:20)
[2018-01-03] MEDS: INSULIN REGULAR 100 UNIT/ML SUBCUT SCH ×4 (04:21→18:23)
[2018-01-03 05:07] LABS: Basophils % 0.3 % (0.0-0.8); Eosinophils % 0.6 % (0.00-10.9); Hematocrit 29.6 VOL% (35.7-47.0); Hemoglobin 9.6 GM/DL (12.0-16.0); Immature Granulocytes % 0.9 %; Immature Granulocytes Absolute 0.03 #; Lymphocytes # 0.7 10*3/uL (1.4-4.0); Lymphocytes % 19.8 % (21.3-54.2); Mean Corpuscular HGB Conc 32.4 GM/DL (32-36); Mean Corpuscular Hemoglobin 28 PG (27-34); Mean Corpuscular Volume 86.5 FL (87-102); Mean Platelet Volume 9.4 FL (9.6-12.0); Monocytes # 0.3 10*3/uL (0.11-0.8); Monocytes % 9.8 % (1.7-12.7); Neutrophils # 2.3 10*3/uL (1.4-7.4); Neutrophils % 68.6 % (38.7-73.9); Platelet Count 321 T/CUMM (130-400); Red Blood Count 3.42 MC/CUMM (3.8-5.5); Red Cell Distribution Width 13.5 % (9.3-17.3); White Blood Count 3.4 T/CUMM (4-12)
[2018-01-03 05:31] LABS: Alanine Aminotransferase 12 U/L (13-56); Albumin 2.6 G/DL (3.4-5.0); Alkaline Phosphatase 99 U/L (45-117); Aspartate Amino Transferase 6 U/L (0-37); Bilirubin,Total < 0.39 MG/DL (0.2-1.0); Blood Urea Nitrogen 9 MG/DL (7-18); Calcium 8.5 MG/DL (8.5-10.1); Glucose 124 MG/DL (74-106); Potassium 3.9 MMOL/L (3.5-5.1); Sodium 136 MMOL/L (136-145); Total Protein 5.8 G/DL (6.4-8.3)
[2018-01-03] MEDS: CARISOPRODOL 350 MG TABLET PO SCH ×3 (06:17→21:23)
[2018-01-03] MEDS: MORPHINE ER 30 MG TABLET PO SCH ×3 (06:17→21:23)
[2018-01-03] MEDS ORDERED: DEXAMETHASONE INJ 20 MG in SODIUM CHLORIDE 0.9% 50 ML IV ONE (08:30)
[2018-01-03] MEDS ORDERED: FOSAPREPITANT 150 MG in SODIUM CHLORIDE 0.9% 100 ML IV ONE (08:30)
[2018-01-03] MEDS: GRANISETRON 1 MG/1 ML VIAL IV SCH ×2 (08:49→11:20)
[2018-01-03] MEDS: DIAZEPAM 2 MG TABLET PO SCH ×2 (08:50→21:23)
[2018-01-03] MEDS: buPROPion 100 MG TABLET PO SCH ×2 (08:50→21:23)
[2018-01-03] MEDS: PANTOPRAZOLE 40 MG TABLET PO SCH ×2 (08:50→21:23)
[2018-01-03] MEDS: FOLIC ACID 1 MG TABLET PO SCH (08:50)
[2018-01-03] MEDS: FLUTICASONE 50 MCG NASAL SPRAY 16 GM BOTTLE BOTH NARES SCH ×2 (08:51→21:23)
[2018-01-03] MEDS: METOPROLOL SUCCINATE XL 50 MG TABLET PO SCH (08:51)
[2018-01-03] MEDS: DEXAMETHASONE INJ 10 MG in SODIUM CHLORIDE 0.9% 50 ML IV SCH (09:00)
[2018-01-03] MEDS ORDERED: CARBOplatin 300 MG in SODIUM CHLORIDE 0.9% 250 ML IV ONE (09:00)
[2018-01-03] MEDS: guaiFENesin 200 MG/10 ML UDCUP PO PRN (09:43)
[2018-01-03] MEDS: ONDANSETRON 4 MG/2 ML VIAL IV PRN (21:20)
[2018-01-03] MEDS: valACYclovir 500 MG TABLET PO SCH (21:22)
[2018-01-03] MEDS: ENOXAPARIN 40 MG/0.4 ML SYRINGE SUBCUT SCH (21:23)
[2018-01-03] MEDS: ATORVASTATIN 10 MG TABLET PO SCH (21:23)
[2018-01-03] MEDS: MYLANTA/LIDO VISC 2:1 300 ML BOTTLE SWISH/SWAL PRN (21:29)
[2018-01-03] MEDS: PROMETHAZINE INJ 25 MG in SODIUM CHLORIDE 0.9% 50 ML IV PRN (22:14)
[2018-01-04] MEDS: INSULIN REGULAR 100 UNIT/ML SUBCUT SCH ×4 (01:18→18:25)
[2018-01-04] MEDS: ONDANSETRON 4 MG/2 ML VIAL IV PRN ×3 (04:39→17:30)
[2018-01-04] MEDS: MEPERIDINE 50 MG/1 ML VIAL IV PRN ×3 (04:41→17:30)
[2018-01-04] MEDS: MYLANTA/LIDO VISC 2:1 300 ML BOTTLE SWISH/SWAL PRN (04:43)
[2018-01-04] MEDS: CARISOPRODOL 350 MG TABLET PO SCH ×3 (06:24→21:27)
[2018-01-04] MEDS: MORPHINE ER 30 MG TABLET PO SCH ×3 (06:24→21:27)
[2018-01-04] MEDS: METOPROLOL SUCCINATE XL 50 MG TABLET PO SCH (08:00)
[2018-01-04] MEDS: GRANISETRON 1 MG/1 ML VIAL IV SCH ×2 (08:00→09:03)
[2018-01-04] MEDS: DEXAMETHASONE INJ 10 MG in SODIUM CHLORIDE 0.9% 50 ML IV SCH (09:02)
[2018-01-04] MEDS: DIAZEPAM 2 MG TABLET PO SCH ×2 (09:03→20:41)
[2018-01-04] MEDS: FOLIC ACID 1 MG TABLET PO SCH (09:03)
[2018-01-04] MEDS: valACYclovir 500 MG TABLET PO SCH ×2 (09:03→20:41)
[2018-01-04] MEDS: FLUTICASONE 50 MCG NASAL SPRAY 16 GM BOTTLE BOTH NARES SCH ×2 (09:03→20:42)
[2018-01-04] MEDS: PANTOPRAZOLE 40 MG TABLET PO SCH ×2 (09:03→20:41)
[2018-01-04] MEDS: buPROPion 100 MG TABLET PO SCH ×2 (09:04→20:40)
[2018-01-04 09:23] LABS: Alanine Aminotransferase 15 U/L (13-56); Albumin 2.4 G/DL (3.4-5.0); Alkaline Phosphatase 92 U/L (45-117); Aspartate Amino Transferase 10 U/L (0-37); Bilirubin,Total < 0.39 MG/DL (0.2-1.0); Blood Urea Nitrogen 8 MG/DL (7-18); Calcium 8.1 MG/DL (8.5-10.1); Glucose 150 MG/DL (74-106); Osmolality,Calculated 273.8 MOS/KG (273-304); Potassium 3.5 MMOL/L (3.5-5.1); Sodium 137 MMOL/L (136-145); Total Protein 5.5 G/DL (6.4-8.3)
[2018-01-04 09:34] LABS: Basophils % 0.3 % (0.0-0.8); Hematocrit 28.9 VOL% (35.7-47.0); Immature Granulocytes Absolute 0.03 #; Lymphocytes # 0.5 10*3/uL (1.4-4.0); Lymphocytes % 15.3 % (21.3-54.2); Mean Corpuscular HGB Conc 31.1 GM/DL (32-36); Mean Corpuscular Hemoglobin 28 PG (27-34); Mean Platelet Volume 9.3 FL (9.6-12.0); Monocytes # 0.3 10*3/uL (0.11-0.8); Monocytes % 10.5 % (1.7-12.7); Neutrophils # 2.3 10*3/uL (1.4-7.4); Neutrophils % 71.9 % (38.7-73.9); Platelet Count 268 T/CUMM (130-400); Red Blood Count 3.21 MC/CUMM (3.8-5.5); Red Cell Distribution Width 13.4 % (9.3-17.3); White Blood Count 3.1 T/CUMM (4-12)
[2018-01-04] MEDS: ZINC OXIDE PASTE 113 GM TUBE TOP PRN (10:56)
[2018-01-04] MEDS: PROMETHAZINE INJ 25 MG in SODIUM CHLORIDE 0.9% 50 ML IV PRN (13:32)
[2018-01-04] MEDS: ATORVASTATIN 10 MG TABLET PO SCH (20:41)
[2018-01-04] MEDS ORDERED: BISMUTH SUBSALICYLATE 30 ML/524 MG 240 ML/BOTTLE PO PRN (21:38)
[2018-01-05] MEDS: INSULIN REGULAR 100 UNIT/ML SUBCUT SCH ×4 (00:56→18:07)
[2018-01-05] MEDS: MEPERIDINE 50 MG/1 ML VIAL IV PRN ×3 (01:07→18:43)
[2018-01-05] MEDS: ONDANSETRON 4 MG/2 ML VIAL IV PRN ×3 (01:10→18:40)
[2018-01-05] MEDS: CARISOPRODOL 350 MG TABLET PO SCH ×3 (05:33→22:08)
[2018-01-05] MEDS: MORPHINE ER 30 MG TABLET PO SCH ×3 (05:33→22:07)
[2018-01-05] MEDS ORDERED: SODIUM CHLORIDE 0.9% 1,000 ML IV PRN (08:51)
[2018-01-05] MEDS: GRANISETRON 1 MG/1 ML VIAL IV SCH ×2 (09:16→09:20)
[2018-01-05] MEDS: METOPROLOL SUCCINATE XL 50 MG TABLET PO SCH (09:20)
[2018-01-05] MEDS: FLUTICASONE 50 MCG NASAL SPRAY 16 GM BOTTLE BOTH NARES SCH ×2 (09:20→22:08)
[2018-01-05] MEDS ORDERED: PROPOFOL 200 MG/20 ML VIAL IV ONE (09:50)
[2018-01-05] MEDS ORDERED: LIDOCAINE 2% 5 ML VIAL ONE (09:50)
[2018-01-05] MEDS: MYLANTA/LIDO VISC 2:1 300 ML BOTTLE SWISH/SWAL PRN ×2 (14:07→18:39)
[2018-01-05] MEDS: DIAZEPAM 2 MG TABLET PO SCH ×2 (14:09→20:58)
[2018-01-05] MEDS: valACYclovir 500 MG TABLET PO SCH ×2 (14:09→20:54)
[2018-01-05] MEDS: FOLIC ACID 1 MG TABLET PO SCH (14:10)
[2018-01-05] MEDS: buPROPion 100 MG TABLET PO SCH ×2 (14:10→20:54)
[2018-01-05] MEDS: PANTOPRAZOLE 40 MG TABLET PO SCH ×2 (14:10→20:55)
[2018-01-05] MEDS: DEXAMETHASONE INJ 10 MG in SODIUM CHLORIDE 0.9% 50 ML IV SCH (18:35)
[2018-01-05] MEDS: ATORVASTATIN 10 MG TABLET PO SCH (20:55)
[2018-01-06] MEDS: MEPERIDINE 50 MG/1 ML VIAL IV PRN (03:07)
[2018-01-06] MEDS: INSULIN REGULAR 100 UNIT/ML SUBCUT SCH ×2 (04:40→07:54)
[2018-01-06] MEDS: MORPHINE ER 30 MG TABLET PO SCH (06:39)
[2018-01-06] MEDS: ALUMINUM/MAGNES/SIMETH MAX STR 30 ML UDCUP PO PRN (06:43)
[2018-01-06 08:51] VITALS: BP 111/61
[2018-01-06] MEDS: buPROPion 100 MG TABLET PO SCH (09:30)
[2018-01-06] MEDS: FOLIC ACID 1 MG TABLET PO SCH (09:30)
[2018-01-06] MEDS: PANTOPRAZOLE 40 MG TABLET PO SCH (09:32)
[2018-01-06] MEDS: DIAZEPAM 2 MG TABLET PO SCH (09:32)
[2018-01-06] MEDS: valACYclovir 500 MG TABLET PO SCH (09:32)
[2018-01-06] MEDS: GRANISETRON 1 MG/1 ML VIAL IV SCH ×2 (09:32→09:35)
[2018-01-06] MEDS: DEXAMETHASONE INJ 10 MG in SODIUM CHLORIDE 0.9% 50 ML IV SCH (09:32)
[2018-01-06] MEDS: FLUTICASONE 50 MCG NASAL SPRAY 16 GM BOTTLE BOTH NARES SCH (09:34)
[2018-01-06] MEDS: METOPROLOL SUCCINATE XL 50 MG TABLET PO SCH (09:35)
[2018-01-06] MEDS: HEPARIN LOCK FLUSH 500 UNIT/5 ML SYRINGE IV PRN (10:42)
== END 2018-01-06 11:33 | disposition home or self-care (01) | DRG 163 ==
LOC: N.ED 21:52 → N.EDINP 12-07 01:58 → SUATTDRO 12-07 01:58 → N.ICU 12-07 02:18 → N.2E 12-07 16:59 → N.4E 12-14 17:08
PROVIDERS: ADMIT Internal Medicine